=== PATIENT | male | born 1965 | race Caucasian/White ===

== ENCOUNTER 2018-01-28 10:07 | Outpatient (CLI) | payer MEDICAID, SELFPAY ==
[2018-01-28 12:53] LABS: Potassium 4.6 mmol/L (3.5-5.1)
== END 2018-01-28 10:27 ==
PROVIDERS: Visit Provider Family Medicine
DX: I10 Essential (primary) hypertension (principal)
CPT/HCPCS: 36415; 82565; 84132

== ENCOUNTER 2018-06-27 15:51 | Outpatient (CLI) | payer MEDICAID, SELFPAY ==
[2018-06-27 16:05] LABS: HCT 44.7 % (40.0-50.0); Mean Corp. HGB Concentration 35.8 g/dL (32.0-36.0); Mean Corpuscular Hemoglobin 30.2 pg (27.0-33.0); Mean Corpuscular Volume 84.3 fL (80-95); Mean Platelet Volume 8.5 fL (8.0-11.0); Platelet Count 317 x1000/uL (130-400); RBC Distribution Width 12.6 % (11.8-14.1); White Blood Cell Count 8.24 k/cumm (4.4-10.8)
[2018-06-27 17:18] LABS: ALT 38 U/L (12-78); AST 18 U/L (15-37); Albumin 4.3 g/dL (3.4-5.0); Alkaline Phosphatase 51 U/L (46-116); Anion Gap 7.8 mmol/L (3-11); BUN 26 mg/dL (7-18); Bilirubin, Total 0.7 mg/dL (0.2-1.0); CO2 31.2 mmol/L (21.0-32.0); CREATININE 1.29 mg/dL (0.70-1.30); Calcium 9.5 mg/dL (8.5-10.1); Chloride 102 mmol/L (98-107); Cholesterol 191 mg/dL (50-200); Estimated GFR 58.26 (mL/min/1.73m2); Glucose 87 mg/dL (70-100); HDL Cholesterol 50 mg/dL (40-60); LDL CHOLESTEROL 118 mg/dL (<100); Potassium 3.9 mmol/L (3.5-5.1); Sodium 141 mmol/L (136-145); Total Protein 7.3 g/dL (6.4-8.2); Triglyceride 148 mg/dL (30-150)
== END 2018-06-27 16:11 ==
PROVIDERS: Family Medicine; PCP Family Medicine; Visit Provider Emergency Medicine
DX: I10 Essential (primary) hypertension (principal); Z00.00 Encounter for general adult medical examination without abnormal findings; Z01.818 Encounter for other preprocedural examination
CPT/HCPCS: 80053; 80061; 83721; 85027; 84132

== ENCOUNTER 2019-06-07 11:00 | Outpatient (CLI) | payer MEDICAID, SELFPAY ==
--- NOTE | 2019-06-07 09:00 | DI.RAD_ITS ---
EXAM: XR KNEE RT 3V AP,LAT,MARGARITO INDICATION: Pain. COMPARISON: LEFT KNEE 3 VIEW COMPLETE from 12/30/2016 TECHNIQUE: 2D digital imaging was performed. FINDINGS: No acute fracture or dislocation is seen. There is a 2 millimeter linear density anterior to the pa tellar ligament appreciated on both the lateral and the sunrise views. This may represent a foreign body. Please correlate clinically. The soft tissues are otherwise unremarkable.
== END 2019-06-07 11:20 ==
PROVIDERS: PCP Family Medicine; Visit Provider Student in an Organized Health Care Education/Training Program
DX: M25.562 Pain in left knee (principal); R93.7 Abnormal findings on diagnostic imaging of other parts of musculoskeletal system
CPT/HCPCS: 73562

== ENCOUNTER 2019-06-16 04:20 | Outpatient (CLI) | payer MEDICAID, SELFPAY ==
--- NOTE | 2019-06-16 10:30 | DI.MRI_ITS ---
EXAM: MR LOWER JOINT RT WO CLINICAL HISTORY: Right knee internal derangement concern for medial meniscus tear and. TECHNIQUE: Multiplanar multisequence MRI was performed. COMPARISON: XR KNEE RT 3V AP,LAT,MARGARITO from 06/07/2019 FINDINGS: Some soft tissue edema at anterior to the patellar tendon. There is a small artifact in the anterior subcutaneous fat secondary to a tiny fragment of metal visible on plain films. There is thickening a nd edema in the anterior cruciate ligament but no evidence of a full-thickness tear. The medial and l ateral collateral ligaments and extensor mechanism appear intact. Obvious cyst or ganglion is seen po sterior to the posterior cruciate ligament extending through the posterior capsule. It measures a rou ghly 2 by 1 cm by 4 cm. There is a tiny joint effusion. There is mild intracystic substance degenerat stuart signal in the medial meniscus. No meniscal tears or cartilage defects are seen. IMPRESSION: ACL sprain versus mucoid degeneration. Synovial cyst or ganglion seen in the posterior joint space. No evidence of a meniscal tear. DATA REPOSITORY:
== END 2019-06-16 04:40 ==
PROVIDERS: PCP Family Medicine; Visit Provider Student in an Organized Health Care Education/Training Program
DX: M25.561 Pain in right knee (principal); M22.41 Chondromalacia patellae, right knee; M23.91 Unspecified internal derangement of right knee; M79.89 Other specified soft tissue disorders; M25.461 Effusion, right knee
CPT/HCPCS: 73721

== ENCOUNTER 2019-08-23 09:32 | Emergency (ER) | payer MEDICAID, SELFPAY ==
[2019-08-23 09:38] VITALS: BP 146/115; PULSE 84; RESP 18; TEMP 36.6; O2SAT 96
--- NOTE | 2019-08-23 09:53 | ED.GENADUL_ITS ---
Discharge Plan Disposition Patient Disposition: HOME Condition: Fair Discharge Details Chief Complaint: Nk/Back Pain Clinical Impression: Radiculopathy, Back pain, Muscle spasm Primary Care Provider: Ronen Quintero ED Provider: Kayleen Patel Home Meds and New Rx's Prescriptions: New prednisone 10 mg tablet 10 mg PO DAILY Qty: 18 RF: 0 cyclobenzaprine 10 mg tablet 10 mg PO TID PRN (Reason: muscle spasm) Qty: 10 RF: 0 Continued ropinirole 0.5 mg tablet 0.5 mg PO HS Qty: 180 RF: 3 fluticasone propionate 16 GM spray,suspension 1 spray NS BID Qty: 1 RF: 11 hydrochlorothiazide 12.5 mg tablet 12.5 mg PO DAILY Qty: 90 RF: 3 acetaminophen [Tylenol] 325 MG tablet 325 mg PO Q8H PRN PRNRF: 0 ibuprofen 600 MG tablet 600 mg PO Q6H PRN (Reason: Pain) Qty: 15 RF: 0 lisinopril 20 mg tablet 40 mg PO HS RF: 0 amlodipine 5 mg tablet 5 mg PO HS RF: 0 omeprazole 40 mg capsule,delayed release(DR/EC) 40 mg PO DIRECTED RF: 0 Discharge Instructions Instructions: Muscle Spasm (ED), Back Pain (ED) Additional Instructions: Encourage water intake. Encourage gentle stretching as discussed. I am concern regarding the narrowing of your canal of your cervical spine. Referral has been sent to the spine center at [facility]. Your images is also been pushed to them. Please take the steroids as prescribed, please pay attention to be tapered dosing. In regard to your lower back pain, this is most consistent with muscle spasm. You did have degenerative changes noted on your CT scan. Please encourage gentle stretching as we discussed. You may use the Lidoderm patch, these are available [id number]. Tylenol and/or ibuprofen as needed for discomfort. Heat may also be of benefit. You may use the muscle relaxer as prescribed to help with muscle spasm. Please not drive will take this medication. Please avoid heavy lifting. If you develop radiating pain, weakness, change in your bowel or bladder habits, rash, fevers or other new/worsening symptom please seek care urgently once again. Otherwise, please follow-up with your primary care on Wednesday for reevaluation. Referrals: Quintero,Ronen J. 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 He states that 3 days ago he was rogers uling brush from his yard when he felt a sudden pop in his lumbar spine. He states he did not have any pain initially. He was not to the following evening that he began experiencing discomfort in the lower back. States that since that time, the pain has been progressively worsening to the point that this morning he was having difficulty getting out of bed and performing simple activities secondary to severe pain. States the pain is in the lumbar spine worse on the right side than the left foot also severe midline tenderness with movement of his lower extremities. He denies any change in bowel or bladder habits. Denies any sensory deficits. Has not noted any weakness. Since that time, patient is also been endorsing tingling in the left arm and hand with extension of the neck. He denies any pain with this movement. He denies any pain in the neck itself. He is forward to motion of the neck. No history of previous neck or back trauma. No previous consistent pain in his neck or his back. On exam, patient appears very uncomfortable. He is moving in a very stiff manner. He has not had anything for his discomfort as of yet. He appears nontoxic. Exam of the neck shows no tenderness with range of motion or percussion/palpation over the cervical spine. He has no pain or typical response with Spurling's test. However, when patient extends directly backward he has tingling in the left hand. On further exam, sharp/dull testing is intact and patient in neutral position. However, he is unable to differentiate along the C5 nerve root distribution when he extends his head backwards. He does not have pain with doing this but rather this altered sensation. 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 He has no saddle paresthesias. 5-5 strength in the bilateral lower extremities. Normal Babinski. Straight leg is positive bilaterally. Is exquisitely tender along the length of his lumbar spine, particularly on the right side although he does express midline tenderness. No step-off is palpable. No rash. He does have palpable spasm along this right side. No pain over the SI joints, normal pelvic exam. Consulted with radiologist regarding imaging. The patient is having a focal neurologic deficit of the cervical spine, will obtain MRI of the patient's cervical spine and a CT scan of his lumbar spine. Patient was given oral Valium, Tylenol, ibuprofen to help with discomfort. Will place Lidoderm patch after his imaging is completed. CT reviewed by radiologist: FINDINGS: Bones: The last intervertebral disc space is designated the L5/S1 level for the numbering purpose of this examination. The vertebral body heights are well maintained. Alignment is satisfactory. No fracture is seen. There are small endplate osteophytes. There are mild facet degenerative changes. There is mild spurring at the SI joints. T12-L1: No disc herniations or bulges are present. L1-2: No disc herniations or bulges are present. L2-3: No disc herniations or bulges are present. L3-4 and L4-5: There is mild broad-based disc bulging. There is mild bilateral neural foraminal narrowing. L5-S1: No disc herniations or bulges are present. Soft Tissues: There is a left renal cyst. The aorta is normal in diameter.. The paraspinal soft tissues are unremarkable. IMPRESSION: Mild degenerative disc changes and facet degenerative changes at L3-4 and L4-5. No focal disc herniation or other acute abnormality is seen.. FINDINGS: BONES: Vertebral body heights are maintained. Alignment is normal. Bone marrow signal intensity is within normal limits. CERVICAL CORD: Craniovertebral junction is unremarkable. The cervical cord is normal size and signal intensity. SOFT TISSUES: Unremarkable. C2-3: No disc herniation or bulge is identified. C3-4: The osteophytes project toward the right, causing severe neural foraminal narrowing. There is mild effacement of the anterior CSF space. Facet degenerative changes are present. C4-5: Small broad-based disc osteophytes. Mild bilateral neural foraminal narrowing. Facet degenerative changes are seen. C5-6: Broad-based disc osteophytes. Question of a small left foraminal disc herniation. Facet degenerative changes are seen. C6-7: Moderate to severe loss of disc height and broad-based disc osteophytes causing severe bilateral neural foraminal narrowing. There is effacement of the anterior CSF space. Facet degenerative changes are seen. C7-T1: No disc herniation or bulge is identified. IMPRESSION: Multilevel degenerative disc changes and facet degenerative changes. There is severe neural foraminal narrowing on the right at C3-4. There is severe bilateral neural foraminal narrowing at C6-7. There is a question of a small left foraminal disc herniation at C5-6 versus disc osteophyte. Mild narrowing of the central canal is also present.. Discussed these findings with the patient. He is feeling much more comfortable with the above interventions. I consulted with Dr. Terry who advised follow- up with spine surgery at [facility]. He did not feel this may be an emergent transfer as this is solely positional radiculopathy with no evidence of muscular involvement or constant symptoms. He agreed with plan for oral steroid taper to help with inflammation and discomfort. Discussed these recommendations at length with the patient. He was given strict return precautions. Encourage gentle range of motion of the lumbar spine, exercises were demonstrated for the patient. I did encourage light use of topical patches, heat. Will prescribe prednisone, first dose given here. Also prescribe Flexeril to help with muscle relaxation. He reports that he primarily wants to use this at night some having Flexeril's sedation side effect will help him sleep better. He knows not to drive will take this medication. Images were pushed down to [facility]. Report sent home with the patient. I have asked him to follow-up with his primary care the end of the week as he is unlikely to be able to follow-up with a spine center in the very near free future. All his questions and concerns were addressed and is in agreement this plan. HPI General Mode of arrival: ambulatory . Date/Time Provider Initiated Documentation: 08/23/19 09:52 . Limitations to Documentation: no limitations . Information obtained by: patient and RN notes reviewed . History of Present Illness 53 year old M presents to the emergency department with the chief complaint of Low back pain and left arm sensation changes, described as severe, with intensity rated at 9. Quality is described as sharp, and is localized to the back. Patient reports no radiation (Pain is nonradiating, tingling does radiate down the left arm with extension of the neck). Patient started experiencing this day(s) and it has been constant. Immobilization improves symptom(s), Movement worsens symptoms . Patient notes denies cough, fever/chills, headaches, loss of appetite, nausea/vomiting, rash, shortness of breath and weakness. Patient did receive the following treatments prior to arrival, none Related Data Home Medications Medication Instructions Recorded Confirmed acetaminophen [Tylenol] 325 mg PO Q8H PRN PRN 06/02/16 08/23/19 ibuprofen 600 mg PO Q6H PRN #15 tab 03/25/17 08/23/19 fluticasone propionate 1 spray NS BID #1 bottle 05/04/17 08/23/19 hydrochlorothiazide 12.5 mg tablet 12.5 mg PO DAILY #90 tab-cap 03/06/19 08/23/19 ropinirole 0.5 mg tablet 0.5 mg PO HS #180 tab 05/19/19 08/23/19 amlodipine 5 mg PO HS 08/23/19 08/23/19 cyclobenzaprine 10 mg PO TID PRN #10 tab 08/23/19 lisinopril 40 mg PO HS 08/23/19 08/23/19 omeprazole 40 mg PO DIRECTED 08/23/19 08/23/19 prednisone 10 mg PO DAILY #18 tab 08/23/19 Previous Rx's Medication Instructions Recorded ibuprofen 600 mg PO Q6H PRN #15 tab 03/25/17 fluticasone propionate 1 spray NS BID #1 bottle 05/04/17 hydrochlorothiazide 12.5 mg tablet 12.5 mg PO DAILY #90 tab-cap 03/06/19 ropinirole 0.5 mg tablet 0.5 mg PO HS #180 tab 05/19/19 cyclobenzaprine 10 mg PO TID PRN #10 tab 08/23/19 prednisone 10 mg PO DAILY #18 tab 08/23/19 Allergies Allergy/AdvReac Type Severity Reaction Status Date / Time diphenhydramine AdvReac Intermediate HEARTBURN Verified 08/23/19 09:46 zinc [Zinc] AdvReac Intermediate HEARTBURN Verified 08/23/19 09:46 morphine AdvReac vomiting Verified 08/23/19 09:46 General Stated Complaint: Nk/Back Pain JUAN: 3 Review of Systems Constitutional Constitutional: Reports as per HPI, Denies chills, Denies fatigue, Denies fever(s), Denies frequent falls and Denies headache(s) Eyes Eyes: Denies change in vision ENT Ears, Nose, Mouth, and Throat: Denies headache(s) Cardiovascular Cardiovascular: Denies chest pain, Denies dyspnea and Denies dyspnea on exertion Respiratory Respiratory: Denies cough, Denies dyspnea and Denies dyspnea on exertion Gastrointestinal Gastrointestinal: Denies abdominal pain, Denies change in bowel habits and Denies fecal incontinence Genitourinary Genitourinary: Reports as per HPI, Denies urinary hesitancy and Denies urinary incontinence Musculoskeletal Musculoskeletal: Reports as per HPI, Reports back pain, Denies muscle weakness, Denies numbness, Denies radiating pain into limb, Reports stiffness and Reports tingling Integumentary/Breasts Skin/Breast: Reports as per HPI and Denies rash Neurologic Neurologic: Reports as per HPI, Denies frequent falls, Denies headache(s), Denies localized weakness, Denies numbness, Denies radicular pain, Denies sensory deficit, Reports tingling and Denies paresthesias Endocrine Endocrine: Denies fatigue [facility] Medical History Chondromalacia patellae, right knee (Inactive ~03/2019) Surgical History Appendectomy Cholecystectomy Vasectomy Social History Smoking/Tobacco Use Status: Current every day Tobacco Type: smokeless tobacco Alcohol Intake: former Drug use: Rarely Substance use type: marijuana Current gender identity: male Do you feel safe at home: Yes Do you feel safe in your relationship?: Yes Exam Const General: cooperative, healthy appearing, uncomfortable, no acute distress, well developed and well groomed Nutritional Appearance: well nourished and overweight Orientation: alert, awake and oriented x3 Eyes General: appearance normal, both eyes and all related structures Neck Neck: normal visual inspection, full ROM, no lymphadenopathy, no meningeal signs and other (negative spurlings but patient has sensation changes with extension of neck) Resp Effort & Inspection: normal respiratory effort and able to speak in complete sentences Auscultation: clear to auscultation bilaterally, no rales, no rhonchi and no wheezes Cardio Rate: regular rate Rhythm: regular rhythm Heart Sounds: S1 normal and S2 normal GI Inspection: normal to inspection Palpation: soft and nontender Back/Spine/Pelvis Back: no CVA tenderness Cervical Spine: normal cervical lordosis, cervical ROM normal, No Lhermitte's sign positive, No loss of normal cervical lordosis, No cervical muscular tenderness, No pain with cervical ROM, No cervical spasm, No cervical spinal tenderness, No step off deformity, No cervical ROM abnormal and other (sensation deficit with extension along C5 distribution, normal w/neck neutr) Thoracic/Lumbar Spine: thoracic and lumbar spine normal to inspection, No thoraco-lumbar ROM normal (rotation full to left, limited 2* pain on right, forward flex and extension), No kyphosis, No mass, paraspinal tenderness (right lumbar spine), thoraco-lumbar ROM limited, thoraco-lumbar spasm (palpable spasm right lumbar spine), No thoracic spinal tenderness, lumbar spinal tenderness and straight leg raise positive (bilaterally) Pelvis: no pain with anterior-posterior compression, no pain with lateral compression and no buttock ecchymosis Sacroiliac joints: bilaterally nontender Sacrum: no ecchymosis, no erythema and no swelling Skin General skin exam: no rashes or lesions noted Neuro General: patient alert and patient awake Cognition: normal cognition Speech: speech normal Gait: normal gait Motor: muscle tone normal throughout, strength 5/5 throughout, no movement abnormalities noted and no fasciculations Sensory Exam: lower extremity (normal sensation, strength testing), perineum exam normal and upper extremity (left has normal with next in extension, sharp/dull limited with extensionC5) DTR's: Rt Biceps: 2+, Lt Biceps: 2+, Rt Brachioradialis: 2+, Lt Brachioradialis: 2+, Rt Patellar: 2+, Lt Patellar: 2+, Rt Ankle: 2+ and Lt Ankle: 2+ Plantar Reflexes: Equivocal: bilateral Extrem General: normal to inspection, full ROM, capillary refill normal, no joint enlargement, no pedal edema, no calf tenderness and normal gait Psych Appearance: grossly normal and well kempt Mental Status: mental status grossly normal Speech and Movement: speech and movement normal Course Vital Signs Vital signs: Vital Signs Temperature 36.6 C 08/23/19 09:38 Pulse 84 08/23/19 09:38 Respiratory Rate 18 08/23/19 09:38 Blood Pressure 146/115 H 08/23/19 09:38 Pulse Oximetry 96 08/23/19 09:38 Temperature 36.6 C 08/23/19 09:38 Temperature Source Skin 08/23/19 09:38 Pulse 84 08/23/19 09:38 Respiratory Rate 18 08/23/19 09:38 Respiratory Effort 08/23/19 09:45 Blood Pressure 146/115 H 08/23/19 09:38 Blood Pressure Position Sitting 08/23/19 09:38 Pulse Oximetry 96 08/23/19 09:38 Oxygen Delivery Method Room Air 08/23/19 09:38 Oxygen Flow Rate 0 08/23/19 09:38 Pain Level 9 08/23/19 09:38 Comment trying heat and icy-hot pads 08/23/19 09:38
[2019-08-23] MEDS: diazePAM 5 MG TAB PO (10:12)
[2019-08-23] MEDS: Ibuprofen 600 MG TAB PO (10:12)
[2019-08-23] MEDS: Acetaminophen 500 MG TAB 1000 MG PO (10:13)
--- NOTE | 2019-08-23 10:15 | DI.MRI_ITS ---
EXAM: MR CERVICAL SPINE WO CLINICAL HISTORY: altered sensation with extension of the neck TECHNIQUE: Multiplanar multisequence MRI of the cervical spine was performed without intravenous con trast. The exam is somewhat limited by patient motion. COMPARISON: No exams were available for comparison FINDINGS: BONES: Vertebral body heights are maintained. Alignment is normal. Bone marrow signal intensity is w ithin normal limits. CERVICAL CORD: Craniovertebral junction is unremarkable. The cervical cord is normal size and signal intensity. SOFT TISSUES: Unremarkable. C2-3: No disc herniation or bulge is identified. C3-4: The osteophytes project toward the right, causing severe neural foraminal narrowing. There is mild effacement of the anterior CSF space. Facet degenerative changes are present. C4-5: Small broad-based disc osteophytes. Mild bilateral neural foraminal narrowing. Facet degenera tive changes are seen. C5-6: Broad-based disc osteophytes. Question of a small left foraminal disc herniation. Facet degen erative changes are seen. C6-7: Moderate to severe loss of disc height and broad-based disc osteophytes causing severe bilatera l neural foraminal narrowing. There is effacement of the anterior CSF space. Facet degenerative diane nges are seen. C7-T1: No disc herniation or bulge is identified. IMPRESSION: Multilevel degenerative disc changes and facet degenerative changes. There is severe neural foramina l narrowing on the right at C3-4. There is severe bilateral neural foraminal narrowing at C6-7. The re is a question of a small left foraminal disc herniation at C5-6 versus disc osteophyte. Mild narr owing of the central canal is also present.. DATA REPOSITORY:
--- NOTE | 2019-08-23 11:09 | DI.CT_ITS ---
EXAM: CT LUMBAR SPINE WO CLINICAL HISTORY: felt pop with severe pain. TECHNIQUE: Imaging Protocol: Axial computed tomography images with coronal and sagittal reformatted images were created and reviewed CONTRAST MATERIAL: Noncontrast COMPARISON: No exams were available for comparison FINDINGS: Bones: The last intervertebral disc space is designated the L5/S1 level for the numbering purpose of this examination. The vertebral body heights are well maintained. Alignment is satisfactory. No frac ture is seen. There are small endplate osteophytes. There are mild facet degenerative changes. Ther e is mild spurring at the SI joints. T12-L1: No disc herniations or bulges are present. L1-2: No disc herniations or bulges are present. L2-3: No disc herniations or bulges are present. L3-4 and L4-5: There is mild broad-based disc bulging. There is mild bilateral neural foraminal narr owing. L5-S1: No disc herniations or bulges are present. Soft Tissues: There is a left renal cyst. The aorta is normal in diameter.. The paraspinal soft tis sues are unremarkable. IMPRESSION: Mild degenerative disc changes and facet degenerative changes at L3-4 and L4-5. No focal disc hernia tion or other acute abnormality is seen.. RADIATION DOSE DELIVERED: Total DLP DATA REPOSITORY: All CT scans at this facility are submitted to the National Radiology Data Registry (NRDR) Dose Index Registry (DIR) with the [employer] (A[employer]). RADIATION OPTIMIZATION: All CT scans at this facility use at least one of these dose optimization te chniques: automated exposure control; mA and/or kV adjustment per patient size (includes targeted exa ms where dose is matched to clinical indication); or iterative reconstruction.
[2019-08-23] MEDS: Lidocaine 5% Patch 1 PATCH TP (12:00)
[2019-08-23 12:11] VITALS: BP 124/84; PULSE 56; RESP 16; TEMP 36.9; O2SAT 97
[2019-08-23 13:32] VITALS: BP 137/99; PULSE 70; RESP 14; TEMP 36.7; O2SAT 95
[2019-08-23] MEDS: predniSONE 20 MG TAB 60 MG PO (13:38)
--- NOTE | 2019-08-24 14:04 | CMPROGNOTE_ITS ---
- If Service Date Differs Date of service: 08/24/19 Time of Service: 14:04 Care Management Progress Note At ED provider's request, CM coordinates referral to [facility].
--- NOTE | 2019-08-24 14:04 | PDOC.ERCMPRO ---
- If Service Date Differs Date of service: 08/24/19 Time of Service: 14:04 Care Management Progress Note At ED provider's request, CM coordinates referral [place] [facility] [place] [facility].
== END 2019-08-23 13:55 | disposition home or self-care (01) ==
PROVIDERS: Emergency Provider Physician Assistant; PCP Family Medicine
DX: M54.12 Radiculopathy, cervical region (principal); M62.830 Muscle spasm of back; X50.0XXA Overexertion from strenuous movement or load, initial encounter
CPT/HCPCS: 99284; 72131; 72141; 99285; J7512

== ENCOUNTER 2019-08-24 17:00 | Emergency (ER) | payer MEDICAID, SELFPAY ==
[2019-08-24] VITALS (25 sets, daily range): BP systolic 132–171; BP diastolic 77–116; PULSE 69–106; RESP 12–26; TEMP 35.8–36.9; O2SAT 94–98
[2019-08-24] MEDS: EPINEPHrine 1 MG/ML AMP pres-free (17:25)
[2019-08-24] MEDS: Normal Saline 1,000 ML 1000 ML IV (17:30)
[2019-08-24] MEDS: Famotidine 20 MG/2 ML VIAL (17:35)
[2019-08-24] MEDS: Normal Saline 50 ML 200 ML (17:38)
[2019-08-24] MEDS: Normal Saline Flush 10 ML SYR IVP (17:51)
--- NOTE | 2019-08-24 19:12 | W.ED.GENAD ---
Discharge Plan Disposition Patient Disposition: HOME Condition: Stable Discharge Details Chief Complaint: Allergic Clinical Impression: Uvulitis Primary Care Provider: Ronen Quintero ED Provider: Franchesca Morris Home Meds and New Rx's Prescriptions: New cephalexin [Keflex] 500 mg capsule 500 mg PO BID Qty: 20 RF: 0 Discontinued lisinopril 20 mg tablet 40 mg PO HS RF: 0 prednisone 10 mg tablet 10 mg PO DAILY Qty: 18 RF: 0 No Action ropinirole 0.5 mg tablet 0.5 mg PO HS Qty: 180 RF: 3 fluticasone propionate 16 GM spray,suspension 1 spray NS BID Qty: 1 RF: 11 hydrochlorothiazide 12.5 mg tablet 12.5 mg PO DAILY Qty: 90 RF: 3 acetaminophen [Tylenol] 325 MG tablet 325 mg PO Q8H PRN PRNRF: 0 ibuprofen 600 MG tablet 600 mg PO Q6H PRN (Reason: Pain) Qty: 15 RF: 0 amlodipine 5 mg tablet 5 mg PO HS RF: 0 omeprazole 40 mg capsule,delayed release(DR/EC) 40 mg PO DIRECTED RF: 0 cyclobenzaprine 10 mg tablet 10 mg PO TID PRN (Reason: muscle spasm) Qty: 10 RF: 0 Discharge Instructions Instructions: Uvulitis (ED) Additional Instructions: You declined CT today as well as admission to the hospital. You understand the risks of being discharged home. Ice water or ice cream as discussed. Discontinue prednisone. Discontinue lisinopril. Use antibiotic as prescribed Use EpiPen if needed as discussed in the outer aspect of your thigh. Recheck with your PCP tomorrow as scheduled. Please follow-up with ENT for reevaluation. Return to the emergency room for any worsening, concerns or alarming symptoms immediately if needed. Please call 911 for acute swelling of your throat, or any worsening symptoms as discussed Referrals: Alvin Craig DO [OSTEOPATHIC DOCTOR] - Siddhartha Montgomery MD [ [facility] STAFF PHYSICIAN] - Discharge Data Discharge Date/Time-TO BE ENTERED AT DEPARTURE: 08/24/19 20:05 Medical Decision Making <MALACHI Gambino - Last Filed: 08/24/19 21:51> This is a 53-year-old patient presenting for complaints of onset of tightness in his throat preceded by a tingling which he reports began at approximately noon. 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 Patient denies any obvious exposure or changes in food today. Patient does report he began a prescription last night and redosed this morning prednisone as well as Flexeril for back pain for which she was seen in the emergency department last evening. Patient does report his back pain is improving. Patient does report he has taken Flexeril in the past without difficulty. Prednisone is a new prescription. Patient denies any obvious rash. Any other sites of swelling. Any headaches or dizziness. Patient denies obvious difficulty breathing. Patient reports in the last 4 hours since onset of his symptoms he describes a progressive insidious throat tightness. Patient does report mild hoarseness of his voice which seems to be developing. Patient denies drooling. Is able to manage his secretions. Has been able to eat and drink without difficulty. Denies any nausea, vomiting or abdominal pain. Denies any obvious cutaneous involvement. Initial evaluation of the patient reveals a comfortable patient, speaking in full sentences with no increase in respiratory effort. On exam patient does have uvula edema and bogginess with mild erythema associated. Mild posterior pharynx erythema also noted. No obvious exudates present. Patient does appear somewhat anxious at this time as he does report being nervous needing to be evaluated in the emergency room during Covid pandemic. Patient's initial blood pressure noted to be 171/116, heart rate 106 easy respirations and O2 saturation 96%. Patient afebrile. Patient denies any obvious infectious symptoms. Patient does report a Benadryl allergy, specifically described as nausea and vomiting. Patient has taken no other medications today. We will plan to provide epinephrine IM the EpiPen and obtain IV access for Pepcid IV. Patient has tolerated Pepcid in the past. We will plan to provide 1 L of IV fluid. Will plan to observe in the emergency room. After approximately 1 hour patient reports approximately 50% improvement in his symptoms however patient reports a persistent sensation of tightness however throat discomfort is improved. Patient reports he is aware of sensation of tightness. Patient denies any development of new symptoms. Specifically denies any cutaneous involvement, abdominal discomfort nausea or vomiting. Denies difficulty breathing, headaches or dizziness. Patient's vital signs have significantly improved. Given patient's persistence of symptoms we will plan to continue to monitor in the ER and reevaluate. Reevaluation at 2 hours, no significant improvement noted after his initial reports of approximately 50% improvement in his symptoms. Patient continues to appear well and speaking full sentences. Breath sounds remain clear. Given patient's improvement with epinephrine allergic reaction does remain in the differential however patient is also noted to be on lisinopril angioedema is a possible etiology of patient's symptoms. Patient's symptoms did begin approximately 7 hours prior to this time and as his symptoms are improving will recommend holding lisinopril. Patient agrees with this plan of care. Patient reportedly does frequently use chewing tobacco. Oral or pharyngeal cancer including differential. Dr. Fontana who did also evaluate this patient did offer patient a CT scan which he declines. I did rediscuss this with the patient he continues to decline need for CT scan today. Consideration for possible infectious etiology of patient's symptoms and focal uvulitis however patient lacks fever. Had a fairly abrupt onset of symptoms preceded by tingling and has had some improvement with epinephrine however infection remains in differential due to persistence of symptoms. We did discuss discharge planning at length with this patient. I did offer this patient admission to the hospital given his persistence of symptoms and lack of full resolution. I did make patient very aware of my concern of airway obstruction or worsening symptoms. Patient does live approximately 20 to 30 minutes away. Patient does desire discharge home at this time. Is aware of the risk of decompensation. Patient does continue to prefer discharge home. Will provide patient an EpiPen if he does develop any worsening of his symptoms. Given patient's potential reaction to prednisone today will hold on any additional prednisone. Will hold on Benadryl given his history of allergy. Did recommend continuation of Pepcid at home. Recommended discontinuation of lisinopril. Recommended ENT follow-up for possible upper endoscopy and scope. Patient agrees with this plan of care. Patient put on elderly caregiver list for follow-up. Patient does have a scheduled follow-up appointment with his PCP for tomorrow, he does plan to follow-up with this. Again we did discuss at length return precautions, use of 911 and EpiPen if needed. Patient reports his understanding and agrees with plan of care. Patient is aware of the risk of discharge at this time and possible decompensation. The patient was stable and requested discharge. Prior to discharge, my usual and customary return precautions were reviewed with the patient - this included follow-up instructions and reasons to return to the Emergency Department if conditions worsens, does not improve as expected, or other new concerns arise. <Michael Fontana MD - Last Filed: 08/26/19 12:00> 19:24 -- Patient seen, examined, discussed with MALACHI Mcclure. Briefly Mr. Matthew is a 53-year-old male who was seen here in the emergency department for back pain yesterday. He was treated with prednisone and Flexeril. Today he developed sensation of throat tightening. He denied associated rash, shortness of breath, nausea, or rash. Initial concern from MALACHI Mcclure including potential allergic reaction. Patient does have known allergy to Benadryl of vomiting. He is concerned that allergy may be related to prednisone as he has tolerated Flexeril in the past. With concern for airway swelling, patient was administered epinephrine intramuscularly. On my evaluation, airway is intact, he has no rash, lungs are clear to auscultation bilaterally with no respiratory distress. Patient is not tachycardic. Voice is clear. He has no stridor. There is no peritonsillar swelling but he does have mild erythema and swelling of his uvula. Consider inflammation secondary to chronic smokeless tobacco use versus infectious etiology. Consider also angioedema given DERRICK inhibitor use although I think this is less likely with isolated swelling. Consider less likely allergic reaction. Patient did note that symptoms improved with epinephrine. I discussed with patient recommendation for advanced imaging including CT of the neck to assess for mass given smokeless tobacco chewing history. Patient provided informed refusal of diagnostic imaging. He is agreeable to following up with early childhood. We discussed with the patient recommendation for hospitalization for observation giving persistent symptoms and unclear etiology at this point. He provided informed refusal to MALACHI Morris. Plan will be to hold lisinopril, stop prednisone, start keflex, provide epipen, follow-up with PCP tomorrow and ENT martin if sysmptoms persist. HPI <MALACHI Gambino - Last Filed: 08/24/19 21:51> General Date/Time Provider Initiated Documentation: 08/24/19 17:08. HPI Narrative: This is a 53-year-old patient presenting to the emergency room for 4 hours of sensation of tightness in his throat, patient also reports increasing hoarseness for the last 4 hours. Patient denies obvious difficulty breathing or shortness of breath or wheezing. Patient denies nausea or vomiting. Patient denies headache or dizziness. Patient reports he was seen in the emergency room yesterday for complaints of back pain. Patient was prescribed a course of prednisone as well as Flexeril. Patient reports he has taken Flexeril in the past without difficulty. Patient reports he took both Flexeril and prednisone this morning at approximately 7 AM. 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 Denies any new food your new obvious exposures. Denies history of seasonal allergies. Patient reports at approximately noon he began to have sensation of tightness in his throat which continues to slowly progress. Patient is speaking in full sentences. Is in no obvious distress at this time but does report increase in hoarseness in his throat. Denies any fevers or chills. Denies any ill feeling. No rashes. No other concerns or complaints at this time. Patient does report he has a history of Benadryl allergy which he describes as stomach upset. Related Data Home Medications Medication Instructions Recorded Confirmed acetaminophen [Tylenol] 325 mg PO Q8H PRN PRN 06/02/16 08/25/19 ibuprofen 600 mg PO Q6H PRN #15 tab 03/25/17 08/25/19 fluticasone propionate 1 spray NS BID #1 bottle 05/04/17 08/25/19 hydrochlorothiazide 12.5 mg tablet 12.5 mg PO DAILY #90 tab-cap 03/06/19 08/25/19 ropinirole 0.5 mg tablet 0.5 mg PO HS #180 tab 05/19/19 08/25/19 amlodipine 5 mg PO HS 08/23/19 08/25/19 cyclobenzaprine 10 mg PO TID PRN #10 tab 08/23/19 08/25/19 omeprazole 40 mg PO DIRECTED 08/23/19 08/25/19 cephalexin [Keflex] 500 mg PO BID #20 cap 08/24/19 08/25/19 Previous Rx's Medication Instructions Recorded ibuprofen 600 mg PO Q6H PRN #15 tab 03/25/17 fluticasone propionate 1 spray NS BID #1 bottle 05/04/17 hydrochlorothiazide 12.5 mg tablet 12.5 mg PO DAILY #90 tab-cap 03/06/19 ropinirole 0.5 mg tablet 0.5 mg PO HS #180 tab 05/19/19 cyclobenzaprine 10 mg PO TID PRN #10 tab 08/23/19 cephalexin [Keflex] 500 mg PO BID #20 cap 08/24/19 Allergies Allergy/AdvReac Type Severity Reaction Status Date / Time diphenhydramine AdvReac Intermediate HEARTBURN Verified 08/25/19 11:50 zinc [Zinc] AdvReac Intermediate HEARTBURN Verified 08/25/19 11:50 morphine AdvReac vomiting Verified 08/25/19 11:50 General Stated Complaint: Allergic JUAN: 3 Review of Systems <MALACHI Gambino - Last Filed: 08/24/19 21:51> All systems reviewed & are unremarkable except as noted in HPI and below Constitutional Constitutional: Denies chills, Denies fatigue, Denies fever(s), Denies headache(s) and Denies malaise Eyes Eyes: Denies itchy eyes ENT Ears, Nose, Mouth, and Throat: Reports change in voice (Hoarseness), Denies dysphagia, Denies dizziness, Denies dry mouth, Denies headache(s), Denies lip swelling, Denies mouth pain, Denies nasal discharge, Denies nasal obstruction, Denies nasal trauma, Denies neck pain, Denies post nasal drip, Denies sore throat, Reports throat swelling and Denies tongue swelling Cardiovascular Cardiovascular: Denies chest pain, Denies syncope, Denies rapid heart rate, Denies palpitations and Denies dyspnea Respiratory Respiratory: Denies cough, Denies dyspnea and Denies wheezing Gastrointestinal Gastrointestinal: Denies abdominal pain, Denies cramping, Denies dysphagia, Denies heartburn, Denies nausea and Denies vomiting Musculoskeletal Musculoskeletal: Denies neck pain Neurologic Neurologic: Denies dizziness, Denies syncope and Denies headache(s) Endocrine Endocrine: Denies fatigue and Denies palpitations Allergic/Immunologic Allergic/Immunologic: Denies urticaria, Denies itchy eyes, Denies lip swelling, Denies seasonal rhinorrhea, Reports throat swelling, Denies tongue swelling and Denies wheezing PFSH <MALACHI Gambino - Last Filed: 08/24/19 21:51> Medical History Chondromalacia patellae, right knee (Inactive ~03/2019) Social History Smoking/Tobacco Use Status: Current every day Tobacco Type: smokeless tobacco Alcohol Intake: former Drug use: Rarely Substance use type: marijuana Current gender identity: male Do you feel safe at home: Yes Do you feel safe in your relationship?: Yes Exam <MALACHI Gambino - Last Filed: 08/24/19 21:51> Narrative Exam Narrative: CONST: Healthy appearing patient, in no acute distress. Well hydrated. Alert and oriented. HENMT: Head nomocephalic, normal to inspection. Atraumatic. Hearing grossly normal. External ear canal no erythema or swelling. TM normal bilaterally. Nose normal to inspection. No rhinnorhea. Normal facial exam. Oral mucosa normal. Tounge normal. Dentition normal. Minimal erythema of the posterior oropharynx. Uvula with mild erythema, diffuse swelling and bogginess present. EYES: General normal appearance. Alignment normal. Eyelids normal. Conjunctiva normal. NECK: Normal visual inspection. FROM. No lymphadenopathy. Trachea midline. No Midline tenderness. CHEST: Normal insepection of the chest. RESP: Normal respiratory effort. Speaking full sentences. No cough. No wheezing. No retractions. Clear to auscaltation. Breath sound equal and present bilaterally. CARDIO: No JVD. Normal PMI. Regular Rate. Regular Rhythm. Normal peripheral pulses. GI: Normal inspection of abdomen. No distension. Soft. Nontender. Bowel sounds present in all 4 quadrants. No rebound. No gaurding. MUSCULOSKELETAL: Normal Gait. FROM of all extremities. Distal neurovascularly intact. Sensation intact distally. SKIN: Normal. Dry. No rashes. No hives NEURO: Alert and awake. Speech clear. PSYCH: Normal affect. Cooperative. Course <MALACHI Gambino - Last Filed: 08/24/19 21:51> Vital Signs Vital signs: Vital Signs Temperature 36.9 C 08/24/19 17:03 Pulse 106 H 08/24/19 17:03 Respiratory Rate 16 08/24/19 17:03 Blood Pressure 171/116 H 08/24/19 17:03 Pulse Oximetry 96 08/24/19 17:03 Temperature 36.9 C 08/24/19 17:03 Temperature Source Skin 08/24/19 17:03 Pulse 79 08/24/19 18:45 Pulse 88 08/24/19 18:50 Respiratory Rate 23 08/24/19 18:50 Respiratory Effort 08/24/19 17:12 Respiratory Pattern Normal 08/24/19 17:12 Blood Pressure 141/83 H 08/24/19 18:45 Blood Pressure Mean 96 08/24/19 18:45 Blood Pressure Position Sitting 08/24/19 17:03 Pulse Oximetry 97 08/24/19 18:50 Oxygen Delivery Method Room Air 08/24/19 17:47 Oxygen Flow Rate 0 08/24/19 17:47 Pain Level 2 08/24/19 17:03
--- NOTE | 2019-08-24 19:21 | NUR.NOTE ---
Nursing Note:faxed referal to ent for 1 week appt 08/24/19
[2019-08-24] MEDS: Cephalexin 500 MG CAP PO (19:50)
[2019-08-24] MEDS: EPINEPHrine 0.3 MG KIT IM (19:51)
== END 2019-08-24 20:05 | disposition home or self-care (01) ==
PROVIDERS: Emergency Provider Physician Assistant; PCP Family Medicine
DX: K12.2 Cellulitis and abscess of mouth (principal); R49.0 Dysphonia; F17.220 Nicotine dependence, chewing tobacco, uncomplicated
CPT/HCPCS: 96361; 96372; 96374; 96375; 99284; J0171

== ENCOUNTER 2020-09-25 20:08 | Emergency (ER) | payer MEDICAID, SELFPAY ==
[2020-09-25 20:12] VITALS: BP 130/88; PULSE 97; RESP 16; TEMP 36.6; O2SAT 98
--- NOTE | 2020-09-25 20:21 | W.ED.GENAD ---
Discharge Plan Disposition Patient Disposition: HOME Condition: Stable Discharge Details Clinical Impression: Tick bite Primary Care Provider: Ronen Quintero ED Provider: Danny Wade Home Meds and New Rx's Prescriptions: Continued ropinirole 0.5 mg tablet 0.5 mg PO HS Qty: 180 RF: 3 fluticasone propionate 50 mcg/actuation spray,suspension 1 spray NS BID Qty: 1 RF: 11 hydrochlorothiazide 12.5 mg tablet 12.5 mg PO DAILY Qty: 90 RF: 3 lisinopril 20 mg tablet 40 mg PO DAILY Qty: 90 RF: 3 acetaminophen [Tylenol] 325 MG tablet 325 mg PO Q8H PRN PRNRF: 0 ibuprofen 600 MG tablet 600 mg PO Q6H PRN (Reason: Pain) Qty: 15 RF: 0 omeprazole 40 mg capsule,delayed release(DR/EC) 40 mg PO DIRECTED RF: 0 Discharge Instructions Instructions: Tick Bite (ED) Additional Instructions: Tick removed without difficulty. Tetanus status updated. Single dose of doxycycline was given. Please watch for new or worsening symptoms and return to the ER for any concerns. Medical Decision Making Patient presents for tick bite. Tick was easily removed using the tick nguyen. Appears to be a deer tick. Will update tetanus, give a single dose of doxycycline. The area was thoroughly cleaned. Patient is comfortable with plan and has additional questions or concerns. Medical Records Medical records reviewed: Yes I reviewed the patient's medical records. HPI General Mode of arrival: ambulatory. Date/Time Provider Initiated Documentation: 09/25/20 20:09. Limitations to Documentation: no limitations. Information obtained by: patient. HPI Narrative: 54-year-old gentleman, past medical history of hypertension, GERD, presenting to the ER because of a tick bite. Patient reports that he was outside working yesterday, dog sleep in his bedroom, unsure of the exact timeline. He noticed the tick to his left lower back about an hour ago, and could not get it off himself. He reports minimal localized discomfort but denies fever, redness, rash, drainage, joint pain, any other symptoms whatsoever. Related Data Home Medications Medication Instructions Recorded Confirmed acetaminophen [Tylenol] 325 mg PO Q8H PRN PRN 06/02/16 05/14/20 ibuprofen 600 mg PO Q6H PRN #15 tab 03/25/17 05/14/20 ropinirole 0.5 mg tablet 0.5 mg PO HS #180 tab 05/19/19 08/25/19 omeprazole 40 mg PO DIRECTED 08/23/19 05/14/20 hydrochlorothiazide 12.5 mg tablet 12.5 mg PO DAILY #90 tab-cap 04/16/20 05/14/20 fluticasone propionate 50 1 spray NS BID #1 bottle 05/14/20 05/14/20 mcg/actuation nasal spray,suspension lisinopril 20 mg tablet 40 mg PO DAILY #90 tab 09/06/20 Previous Rx's Medication Instructions Recorded ibuprofen 600 mg PO Q6H PRN #15 tab 03/25/17 ropinirole 0.5 mg tablet 0.5 mg PO HS #180 tab 05/19/19 hydrochlorothiazide 12.5 mg tablet 12.5 mg PO DAILY #90 tab-cap 04/16/20 fluticasone propionate 50 1 spray NS BID #1 bottle 05/14/20 mcg/actuation nasal spray,suspension lisinopril 20 mg tablet 40 mg PO DAILY #90 tab 09/06/20 Allergies Allergy/AdvReac Type Severity Reaction Status Date / Time diphenhydramine AdvReac Intermediate HEARTBURN Verified 08/25/19 11:50 zinc [Zinc] AdvReac Intermediate HEARTBURN Verified 08/25/19 11:50 morphine AdvReac vomiting Verified 08/25/19 11:50 General Stated Complaint: RashLesion JUAN: 5 Review of Systems Constitutional Constitutional: Denies fever(s) and Denies weakness Musculoskeletal Musculoskeletal: Denies arthralgias and Denies numbness Integumentary/Breasts Skin/Breast: Denies rash Neurologic Neurologic: Denies numbness and Denies weakness [facility] Medical History (Updated 09/25/20 @ 20:28 by MALACHI Vargas) Chondromalacia patellae, right knee (~03/2019) Surgical History Appendectomy Cholecystectomy Vasectomy Social History Smoking/Tobacco Use Status: Current every day Tobacco Type: smokeless tobacco Smoking risk assessment performed?: Yes Alcohol Intake: former Drug use: Rarely Substance use type: marijuana Current gender identity: male Do you feel safe at home: Yes Do you feel safe in your relationship?: Yes Exam Const General: cooperative, healthy appearing, comfortable and no acute distress Orientation: alert and awake [facility] Head: normal to inspection, normocephalic and atraumatic Eyes General: appearance normal, both eyes and all related structures Conjunctivae: conjunctivae normal Neck Neck: normal visual inspection, trachea midline and supple Resp Effort & Inspection: normal respiratory effort and able to speak in complete sentences Back/Spine/Pelvis Back/spine/pelvis image: 1. Embedded nonengorged dog tick. There is no tenderness, local erythema, warmth, drainage. Skin General skin exam: no rashes or lesions noted Neuro General: patient alert, patient awake, moves all extremities and no focal motor deficits Cognition: normal cognition Speech: speech normal Gait: normal gait Sensory Exam: no sensory deficits noted Psych Appearance: grossly normal Mental Status: mental status grossly normal Course Vital Signs Vital signs: Vital Signs Temperature 36.6 C 09/25/20 20:12 Pulse 97 H 09/25/20 20:12 Respiratory Rate 16 09/25/20 20:12 Blood Pressure 130/88 09/25/20 20:12 Pulse Oximetry 98 09/25/20 20:12 Temperature 36.6 C 09/25/20 20:12 Temperature Source Temporal Artery Scan 09/25/20 20:12 Pulse 97 H 09/25/20 20:12 Respiratory Rate 16 09/25/20 20:12 Respiratory Effort Non-Labored 09/25/20 20:13 Blood Pressure 130/88 09/25/20 20:12 Blood Pressure Position Sitting 09/25/20 20:12 Pulse Oximetry 98 09/25/20 20:12 Oxygen Delivery Method Room Air 09/25/20 20:12 Oxygen Flow Rate 0 09/25/20 20:12 Pain Level 4 09/25/20 20:12
[2020-09-25] MEDS: Doxycycline Hyclate 100 MG CAP 200 MG PO (20:36)
== END 2020-09-25 20:34 | disposition home or self-care (01) ==
PROVIDERS: Emergency Provider Physician Assistant; PCP Family Medicine
DX: S30.860A Insect bite (nonvenomous) of lower back and pelvis, initial encounter (principal); W57.XXXA Bitten or stung by nonvenomous insect and other nonvenomous arthropods, initial encounter
CPT/HCPCS: 90471; 99284; 99283

== ENCOUNTER 2020-12-25 08:13 | Outpatient (CLI) | payer MEDICAID, SELFPAY ==
[2020-12-25 13:00] LABS: Anion Gap 10.8 mmol/L (3-11); BUN 22 mg/dL (7-18); CO2 27.2 mmol/L (21.0-32.0); CREATININE 1.2 mg/dL (0.70-1.30); Calcium 8.8 mg/dL (8.5-10.1); Calculated LDL 80 mg/dL (<100); Chloride 105 mmol/L (98-107); Cholesterol 168 mg/dL (<200); Glucose 93 mg/dL (74-106); HDL Cholesterol 52 mg/dL (40-60); Potassium 3.6 mmol/L (3.5-5.1); Sodium 143 mmol/L (136-145); Triglyceride 181 mg/dL (<150)
== END 2020-12-25 08:14 | disposition home or self-care (01) ==
LOC: LOS 08:14
PROVIDERS: PCP Family Medicine; Visit Provider Family Medicine
DX: E87.1 Hypo-osmolality and hyponatremia (principal); E78.5 Hyperlipidemia, unspecified
CPT/HCPCS: 36415; 80048; 80061

== ENCOUNTER 2021-01-25 16:32 | Emergency (ER) | payer SELFPAY | END 2021-01-25 17:09 | LOC: ER 19:20 | PROVIDERS: PCP Family Medicine | DX: R69 Illness, unspecified (principal) ==

== ENCOUNTER 2021-08-26 21:05 | Emergency (ER) | payer MEDICAID, SELFPAY ==
[2021-08-26 21:13] VITALS: BP 137/97; PULSE 87; RESP 18; TEMP 36.5; O2SAT 97
--- NOTE | 2021-08-26 21:29 | ED.GENADUL_ITS ---
Discharge Plan Disposition Patient Disposition: HOME Condition: Good Discharge Details Clinical Impression: Corneal foreign body Primary Care Provider: Ronen Quintero ED Provider: Milton Owen Home Meds and New Rx's Prescriptions: Continued omeprazole 20 mg capsule,delayed release(DR/EC) 20 mg PO DAILY PRN (Reason: acid reflux) Qty: 90 3RF Rx Instructions: buys OTC fluticasone propionate 50 mcg/actuation spray,suspension 1 spray NS BID Qty: 1 11RF lisinopril 20 mg tablet 40 mg PO DAILY Qty: 180 3RF hydrochlorothiazide 12.5 mg tablet 12.5 mg PO DAILY Qty: 90 3RF acetaminophen [Tylenol] 325 MG tablet 325 mg PO Q8H PRN PRN0RF ibuprofen 600 MG tablet 600 mg PO Q6H PRN (Reason: Pain) Qty: 15 0RF Discharge Instructions Instructions: Corneal Abrasion (ED), Eye Foreign Body (ED) Additional Instructions: Corneal foreign body removed and he should be feeling better in the next 24 hours. Erythromycin ointment 4 times a day for 5 days. Follow-up with Dr. Mendoza in 3 days as planned. Return to ED for any change in vision or eye pain. Medical Decision Making Patient presenting with left eye irritation and foreign body sensation since yesterday while doing yard work. He is irrigated is a number of times and continues to have this sensation. No change in vision and no eye pain. Tetracaine with instilled. Upper lid was everted with no evidence of foreign body but still slight. Fluorescein applied and under Coleman lamp for mobility/corneal abrasion noted at the 4 o'clock position peripherally. With use of slit-lamp and Q-tip foreign body removed without difficulty. Erythromycin ointment started. Tetanus up-to-date. 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 Return to ED for eye pain or vision. HPI General Mode of arrival: ambulatory . Date/Time Provider Initiated Documentation: 08/26/21 21:29 . Limitations to Documentation: no limitations . Information obtained by: patient and RN notes reviewed . HPI Narrative: Patient presents to the ED with left eye irritation. Patient was working in the yard yesterday. He remembers getting some debris in his eye which has remained irritated. He has irrigated it a number of times. He still feels like there is something in it and is constantly blinking and tearing. Denies having actual eye pain. Denies any change in his vision. Related Data Home Medications Medication Instructions Recorded Confirmed acetaminophen 325 mg tablet 325 mg PO Q8H PRN PRN 06/02/16 12/25/20 (Tylenol) ibuprofen 600 mg tablet 600 mg PO Q6H PRN #15 tab 03/25/17 12/25/20 fluticasone propionate 50 1 spray NS BID #1 bottle 05/14/20 12/25/20 mcg/actuation nasal spray,suspension omeprazole 20 mg capsule,delayed 20 mg PO DAILY PRN #90 cap 12/25/20 12/25/20 release lisinopril 20 mg tablet 40 mg PO DAILY #180 tab 05/26/21 hydrochlorothiazide 12.5 mg tablet 12.5 mg PO DAILY #90 tab-cap 05/28/21 Previous Rx's Medication Instructions Recorded ibuprofen 600 mg tablet 600 mg PO Q6H PRN #15 tab 03/25/17 fluticasone propionate 50 1 spray NS BID #1 bottle 05/14/20 mcg/actuation nasal spray,suspension omeprazole 20 mg capsule,delayed 20 mg PO DAILY PRN #90 cap 12/25/20 release lisinopril 20 mg tablet 40 mg PO DAILY #180 tab 05/26/21 hydrochlorothiazide 12.5 mg tablet 12.5 mg PO DAILY #90 tab-cap 05/28/21 Allergies Allergy/AdvReac Type Severity Reaction Status Date / Time diphenhydramine AdvReac Intermediate HEARTBURN Verified 08/26/21 21:18 zinc [Zinc] AdvReac Intermediate HEARTBURN Verified 08/26/21 21:18 morphine AdvReac vomiting Verified 08/26/21 21:18 General Stated Complaint: EyeProblem JUAN: 4 Review of Systems Narrative: As documented in HPI otherwise negative as below. Const: no fever, chills, weakness Resp: no cough, SOB, pleuritic pain CV: no CP, diaphoresis, edema, syncope GI: no abdominal pain, nausea, vomiting, diarrhea Neuro: no headache, numbness, focal weakness, confusion PFSH All Active Problems Corneal foreign body (Acute) Tick bite (Acute) Viral illness (Acute) Cervical disc disease (Acute) Patellofemoral arthritis of right knee (Acute ~04/2019) Knee pain, right anterior (Acute) History of appendectomy (Acute) Status post vasectomy (Acute) Trochanteric bursitis (Acute 03/25/17) Osteoarthritis (Acute) C-spine; and L6-7 narrowing/radiculopathy Nasal congestion (Acute 07/29/17) Injury of left Achilles tendon (Acute 10/31/17) Hypertrophy of nasal turbinates (Acute 07/29/17) Essential hypertension (Acute) good BPs at home Deviated nasal septum (Acute 07/29/17) Medical History Chondromalacia patellae, right knee (~03/2019) GERD (gastroesophageal reflux disease) Hypertension Surgical History Appendectomy Cholecystectomy Vasectomy Social History Smoking/Tobacco Use Status: Current every day Tobacco Type: smokeless tobacco Smoking risk assessment performed?: Yes Alcohol Intake: former Drug use: Rarely Substance use type: marijuana Current gender identity: male Do you feel safe at home: Yes Do you feel safe in your relationship?: Yes Exam Const General: cooperative, no acute distress and well developed HENVA Head: normocephalic and atraumatic Face and sinus: normal facial exam Eyes Alignment and Position: alignment normal Periorbital: periorbital findings normal Eyelids: eyelids normal Conjunctivae: conjunctival abnormality left conjunctival injection Cornea: corneas abnormal on the left fluorescein used, abrasion and foreign body other Pupils: PERRL EOM: EOM intact bilaterally Neck Neck: trachea midline and supple Resp Effort & Inspection: normal respiratory effort Neuro General: patient alert and patient oriented x3 Speech: speech normal Gait: normal gait Course Vital Signs Vital signs: Vital Signs Temperature 97.7 F 08/26/21 21:13 Pulse 87 08/26/21 21:13 Respiratory Rate 18 08/26/21 21:13 Blood Pressure 137/97 H 08/26/21 21:13 Pulse Oximetry 97 08/26/21 21:13 Temperature 97.7 F 08/26/21 21:13 Temperature Source Oral 08/26/21 21:13 Pulse 87 08/26/21 21:13 Respiratory Rate 18 08/26/21 21:13 Respiratory Effort 08/26/21 21:17 Blood Pressure 137/97 H 08/26/21 21:13 Blood Pressure Position Sitting 08/26/21 21:13 Pulse Oximetry 97 08/26/21 21:13 Oxygen Delivery Method Room Air 08/26/21 21:13 Oxygen Flow Rate 0 08/26/21 21:13 Pain Level 5 08/26/21 21:13 Procedures FB Removal Eye Location: eye (L) Topical anesthetic used: tetracaine Foreign body: other Evidence of corneal penetration: No Technique: cotton tip swab Procedure performed under: slit-lamp Post-procedure medication: ophthalmic antibiotic Patient tolerated procedure: well and no complications
[2021-08-26] MEDS: Tetracaine 0.5% 4 ML BTL (21:55)
[2021-08-26] MEDS: Fluorescein STRIPS 100/BOX 1 MG (21:55)
[2021-08-26] MEDS: Erythromycin Ophth Oint 3.5 GM TUBE OS (22:31)
== END 2021-08-26 22:32 | disposition home or self-care (01) ==
PROVIDERS: Emergency Provider Emergency Medicine; PCP Family Medicine
DX: T15.02XA Foreign body in cornea, left eye, initial encounter (principal); X58.XXXA Exposure to other specified factors, initial encounter
CPT/HCPCS: 99283

== ENCOUNTER 2021-09-29 20:08 | Emergency (ER) | payer MEDICAID, SELFPAY ==
[2021-09-29 20:29] VITALS: BP 133/100; PULSE 86; RESP 18; TEMP 37; O2SAT 95
--- NOTE | 2021-09-29 22:01 | W.EDPROG ---
Date of service: 09/29/21 Time of Service: 22:01 Medical Decision Making Patient eloped prior to me being able to evaluate. Nursing was able to triage, and patient was stable at that time, patient left prior to me being able to see or assess him. Uncertain as to why he left. Access and clinics did attempt to get in contact with him, but were unsuccessful to Discharge Plan Disposition Patient Disposition: OTHER Discharge Details Chief Complaint: RespSymp Clinical Impression: URI (upper respiratory infection) Primary Care Provider: Ronen Quintero ED Provider: Khurram Mcelroy Home Meds and New Rx's Prescriptions: No Action omeprazole 20 mg capsule,delayed release(DR/EC) 20 mg PO DAILY PRN (Reason: acid reflux) Qty: 90 3RF Rx Instructions: buys OTC fluticasone propionate 50 mcg/actuation spray,suspension 1 spray NS BID Qty: 1 11RF lisinopril 20 mg tablet 40 mg PO DAILY Qty: 180 3RF hydrochlorothiazide 12.5 mg tablet 12.5 mg PO DAILY Qty: 90 3RF acetaminophen [Tylenol] 325 MG tablet 325 mg PO Q8H PRN PRN ibuprofen 600 MG tablet 600 mg PO Q6H PRN (Reason: Pain) Qty: 15 0RF
--- NOTE | 2021-09-29 22:21 | NUR.NOTE ---
patient triaged and asked to wait in waiting room as ed busy. Patient gone when provider went to waiting room to see patient in er 10.Nursing Note:
== END 2021-09-29 21:27 | disposition other institution (70) ==
PROVIDERS: Emergency Provider Student in an Organized Health Care Education/Training Program; PCP Family Medicine
DX: J06.9 Acute upper respiratory infection, unspecified (principal)

== ENCOUNTER 2022-03-09 17:24 | Emergency (ER) | payer MEDICAID, SELFPAY ==
[2022-03-09] VITALS (8 sets, daily range): BP systolic 140–178; BP diastolic 99–122; PULSE 72–91; RESP 12–24; TEMP 36.8; O2SAT 93–96
[2022-03-09 17:54] LABS: Abs Immature Grans 0.05 10^3/uL (0.0-0.06); Absolute Basophil Count 0.09 10^3/uL (0.0-0.2); Absolute Eosinophil Count 0.12 10^3/uL (0.0-0.7); Absolute Lymphocyte Count 3.33 10^3/uL (1.2-3.4); Absolute Monocyte Count 0.75 10^3/uL (0.1-0.8); Absolute Neutrophil Count 5.99 10^3/uL (1.2-6.7); Basophils % 0.9; Eosinophils % 1.2; HCT 45.2 % (40.0-50.0); HGB 15.7 g/dL (13.5-17.5); Immature Grans % 0.5; Lymphocytes % 32.2; MCH 29.4 pg (27.0-33.0); MCHC 34.7 % (32.0-36.0); MCV 85 fL (80-95); MPV 9.1 fL (8.0-11.0); Monocytes % 7.3; Neutrophils % 57.9; Platelet Count 323 10^3/uL (130-400); RBC 5.34 10^6/uL (4.36-5.78); RDW 12.9 % (11.8-14.1); RDW-SD 39.7 fL; WBC 10.33 10^3/uL (4.4-10.8)
[2022-03-09 18:10] LABS: ALT 23 U/L (16-63); AST 18 U/L (15-37); Alkaline Phosphatase 60 U/L (46-116); Anion Gap 7.7 mmol/L (3-11); BUN 20 mg/dL (7-18); Bilirubin, Total 0.5 mg/dL (0.2-1.0); CO2 29.3 mmol/L (21.0-32.0); CREATININE 1.3 mg/dL (0.70-1.30); Chloride 102 mmol/L (98-107); Estimated GFR 64.07 (mL/min/1.73m2); Glucose 95 mg/dL (74-106); Lipase 48 U/L (73-393); Potassium 3.4 mmol/L (3.5-5.1); Sodium 139 mmol/L (136-145); Total Protein 7.3 g/dL (6.4-8.2)
--- NOTE | 2022-03-09 18:19 | W.ED.GENAD ---
Discharge Plan Disposition Patient Disposition: Home Condition: Stable Discharge Details Clinical Impression: Colitis, Back pain, GI bleeding Primary Care Provider: Ronen Quintero ED Provider: Danny Wade Home Meds and New Rx's Prescriptions: Continued omeprazole 20 mg capsule,delayed release(DR/EC) 20 mg PO DAILY PRN (Reason: acid reflux) Qty: 90 3RF Rx Instructions: buys OTC fluticasone propionate 50 mcg/actuation spray,suspension 1 spray NS BID Qty: 1 11RF lisinopril 20 mg tablet 40 mg PO DAILY Qty: 180 3RF hydrochlorothiazide 12.5 mg tablet 12.5 mg PO DAILY Qty: 90 3RF acetaminophen [Tylenol] 325 MG tablet 325 mg PO Q8H PRN PRN ibuprofen 600 MG tablet 600 mg PO Q6H PRN (Reason: Pain) Qty: 15 0RF Discharge Instructions Instructions: Back Pain (ED), Colitis (ED) Additional Instructions: Work-up in the ER revealed that is most likely mild colitis. Clear liquid diet, advance. Diet to bananas, rice, applesauce, tea, toast. [id number] Tylenol as directed. Cool and/or warm compresses every 2 hours for 20 minutes. Please watch for new or worsening symptoms and return to the ER for any concerns. Lastly, I am giving you the name and number of our surgical team, please contact their office tomorrow to discuss your ER visit, need for outpatient reevaluation regarding your ongoing symptoms, and as we discussed you are overdue for a colonoscopy which may be beneficial to further evaluate your GI bleeding. Referrals: Adeel Shi MD [ [facility]] - Medical Decision Making 56-year-old gentleman with a past with history of hypertension presents first for back pain on the right side worse with movement for the past 2 weeks or so, denies any injury. Questions if potentially he has a kidney stone. Denies history of kidney stone, fever, nausea, flank pain, dysuria or hematuria. Patient noticed today blood in his stool and wonders if the 2 are related. He denies any abdominal pain, nausea, vomiting, black tarry stools, history of GI bleed or colonoscopy. Clinically he appears well, nontoxic. Abdomen is soft, nontender. He does have diffuse right-sided back discomfort which appears to be musculoskeletal in nature. Presentation is not overtly consistent with renal stone. Examination does reveal brown stool which is heme positive. Plan is to obtain IV access, routine screening laboratory values, and reassess. Laboratory values are grossly unremarkable for obvious emergent process, no leukocytosis, anemia, thrombocytopenia, his sodium is 139 potassium 3.4 BUN is 20 creatinine 1.3 with a GFR of 64.07, glucose 95, LFTs unremarkable lipase 48, urinalysis unremarkable, no signs of infection or hematuria. Discussed work-up with patient and family. At this time they are overall relieved but concerned that there is not a clear etiology of his symptoms. We did discuss options and they would like to pursue CT imaging. Will pursue CT imaging with IV contrast. We will also provide 30 IV Toradol. Patient does report some relief with the IV Toradol. CT imaging reveals a nonspecific nonobstructed bowel gas pattern. Mild distal colitis not completely excluded. Moderate bladder wall thickening, cystitis not excluded. Clinically he has no urinary symptoms and his urinalysis is unremarkable. Cystic lymph node versus small cystic structure in the right lower quadrant. Discussed CT findings with patient and family. No obvious emergent process identified. Discussed likely potential diagnosis of mild colitis and will not treat with antibiotics. We will provide referral to surgery to further evaluate his GI bleeding, colitis, and cystic lymph node versus small cystic structure. We discussed the marcos diet. Strict discharge and return precautions were provided. Patient understands, is agreeable to this plan, and has no additional questions or concerns upon discharge. This documentation was generated using [employer] dictation system, please disregard any oddities of phrase or misspellings. Medical Records Medical records reviewed: Yes I reviewed the patient's medical records. Imaging Data Radiologic Study: Attestation: I personally reviewed and interpreted this imaging study as follows: Imaging: CT Scan Radiologist's impression: PROCEDURE INFORMATION: Exam: CT Abdomen And Pelvis With Contrast Exam date and time: 03/09/2022 7:36 PM Age: 56 years old Clinical indication: Other: RT sided back pain, blood in stool TECHNIQUE: Imaging protocol: Computed tomography of the abdomen and pelvis with contrast. Radiation optimization: All CT scans at this facility use at least one of these dose optimization techniques: automated exposure control; mA and/or kV adjustment per patient size (includes targeted exams where dose is matched to clinical indication); or iterative reconstruction. Contrast material: OMNIPAQUE 350; Contrast volume: 100 ml; Contrast route: INTRAVENOUS (IV); COMPARISON: CR LEFT HIP COMPLETE AP PELVIS 12/30/2016 5:49 AM FINDINGS: Liver: Normal. No mass. Gallbladder and bile ducts: Prior cholecystectomy. No ductal dilation. Pancreas: Normal. No ductal dilation. Spleen: Normal. No splenomegaly. Adrenal glands: Normal. No mass. Kidneys and ureters: Renal cysts bilaterally No hydronephrosis. Stomach and bowel: Moderate to large stool in the colon . Mild thickening at the rectosigmoid junction No obstruction. Appendix: No evidence of appendicitis. Intraperitoneal space: Unremarkable. No free air. No significant fluid collection. Vasculature: Unremarkable. No abdominal aortic aneurysm. Lymph nodes: 12 mm cystic lymph node in the right lower quadrant versus cyst Prominent periaortic lymph nodes Urinary bladder: Thickening and under distension Reproductive: Unremarkable as visualized. Bones/joints: Unremarkable. No acute fracture. Soft tissues: Unremarkable. IMPRESSION: Nonspecific nonobstructed bowel gas pattern. Mild thickening at the rectosigmoid junction is nonspecific and may be related to under distention. Mild distal colitis not completely excluded Moderate bladder wall thickening and under distension. Cystitis not excluded Cystic lymph node versus small cystic structure in the right lower quadrant. Comparison with prior images would be helpful to assess for stability Thank you for allowing us to participate in the care of your patient Lab Data Lab results reviewed: Yes I reviewed the patient's lab results. Labs: Laboratory Tests Range/Units 03/09/22 03/09/22 03/09/22 17:45 17:45 19:30 WBC (4.4-10.8) 10^3/uL 10.33 RBC (4.36-5.78) 10^6/uL 5.34 Hgb (13.5-17.5) g/dL 15.7 Hct (40.0-50.0) % 45.2 MCV (80-95) fL 85 MCH (27.0-33.0) pg 29.4 MCHC (32.0-36.0) % 34.7 RDW (11.8-14.1) % 12.9 Plt Count (130-400) 10^3/uL 323 MPV (8.0-11.0) fL 9.1 Immature Gran % 0.5 Neutrophils % 57.9 Lymphocytes % 32.2 Monocytes % 7.3 Eosinophils % 1.2 Basophils % 0.9 Nucleated RBC % (0.0-0.3) % 0.0 Absolute Neutrophils (1.2-6.7) 10^3/uL 5.99 Absolute Lymphocytes (1.2-3.4) 10^3/uL 3.33 Absolute Monocytes (0.1-0.8) 10^3/uL 0.75 Absolute Eosinophils (0.0-0.7) 10^3/uL 0.12 Absolute Basophils (0.0-0.2) 10^3/uL 0.09 Sodium (136-145) mmol/L 139 Potassium (3.5-5.1) mmol/L 3.4 L Chloride (98-107) mmol/L 102 Carbon Dioxide (21.0-32.0) mmol/L 29.3 Anion Gap (3-11) mmol/L 7.7 BUN (7-18) mg/dL 20 H Creatinine (0.70-1.30) mg/dL 1.3 Est GFR (CKD-EPI 2020) (mL/min/1.73m2) 64.07 Glucose (74-106) mg/dL 95 Calcium (8.5-10.1) mg/dL 9.0 Total Bilirubin (0.2-1.0) mg/dL 0.5 AST (15-37) U/L 18 ALT (16-63) U/L 23 Alkaline Phosphatase (46-116) U/L 60 Total Protein (6.4-8.2) g/dL 7.3 Albumin (3.4-5.0) g/dL 4.0 Lipase (73-393) U/L 48 Urine Color (Yellow) Yellow Urine Clarity (Clear) Clear Urine pH (5-8) 6.0 Ur Specific [place] (1.005-1.025) 1.020 Urine Protein (Negative) mg/dL Negative Urine Ketones (Negative) mg/dL Negative Urine Blood (Negative) Negative Urine Nitrite (Negative) Negative Urine Bilirubin (Negative) Negative Urine Urobilinogen (Up TO 0.2) EU/dL 0.2 Ur Leukocyte Esterase (Negative) Negative Urine Glucose (Negative) mg/dL Negative Sign Out No HPI General Mode of arrival: ambulatory. Date/Time Provider Initiated Documentation: 03/09/22 17:36. Limitations to Documentation: no limitations. Information obtained by: patient and family. HPI Narrative: This is a 56-year-old gentleman with a past medical history of hypertension, GERD, presenting to the ER reporting back pain worse with movement for approximately 2 weeks, does not radiate anywhere, then earlier this evening he noticed what he describes as blood in his stool associated with a small blood clot. Patient states that he typically has firm, hard stools in his stool this evening was no difference. He denies history of GI bleed or colonoscopy. He denies recent illness or trauma, fever, chest pain, shortness of breath, radiation of his back pain abdominal pain, nausea, vomiting, dysuria, hematuria, pain in his penis or testicles, black tarry stools. Related Data Home Medications Medication Instructions Recorded Confirmed acetaminophen 325 mg tablet 325 mg PO Q8H PRN PRN 06/02/16 03/09/22 (Tylenol) ibuprofen 600 mg tablet 600 mg PO Q6H PRN Pain #15 tabs 03/25/17 03/09/22 fluticasone propionate 50 1 spray NS BID ##1 05/14/20 03/09/22 mcg/actuation nasal spray,suspension omeprazole 20 mg capsule,delayed 20 mg PO DAILY PRN acid reflux #90 12/25/20 03/09/22 release caps lisinopril 20 mg tablet 40 mg PO DAILY #180 tabs 05/26/21 03/09/22 hydrochlorothiazide 12.5 mg tablet 12.5 mg PO DAILY #90 tab-caps 05/28/21 03/09/22 Previous Rx's Medication Instructions Recorded ibuprofen 600 mg tablet 600 mg PO Q6H PRN Pain #15 tabs 03/25/17 fluticasone propionate 50 1 spray NS BID ##1 05/14/20 mcg/actuation nasal spray,suspension omeprazole 20 mg capsule,delayed 20 mg PO DAILY PRN acid reflux #90 12/25/20 release caps lisinopril 20 mg tablet 40 mg PO DAILY #180 tabs 05/26/21 hydrochlorothiazide 12.5 mg tablet 12.5 mg PO DAILY #90 tab-caps 05/28/21 Allergies Allergy/AdvReac Type Severity Reaction Status Date / Time diphenhydramine AdvReac Intermediate HEARTBURN Verified 03/09/22 17:35 zinc [Zinc] AdvReac Intermediate HEARTBURN Verified 03/09/22 17:35 morphine AdvReac vomiting Verified 03/09/22 17:35 General Stated Complaint: Abd Prob JUAN: 3 Review of Systems Constitutional Constitutional: Denies fever(s) and Denies weakness Cardiovascular Cardiovascular: Denies chest pain and Denies dyspnea Respiratory Respiratory: Denies cough and Denies dyspnea Gastrointestinal Gastrointestinal: Denies abdominal pain, Denies melena, Reports hematochezia, Denies constipation, Denies diarrhea, Denies nausea and Denies vomiting Genitourinary Genitourinary: Denies dysuria Musculoskeletal Musculoskeletal: Reports back pain Integumentary/Breasts Skin/Breast: Denies rash Neurologic Neurologic: Denies weakness Hematologic/Lymphatic Hematologic/Lymphatic: Denies easy bleeding and Denies easy bruising PFSH All Active Problems Colitis (Acute) Back pain (Acute) GI bleeding (Chronic) Tick bite (Acute) Viral illness (Acute) Cervical disc disease (Acute) Patellofemoral arthritis of right knee (Acute ~04/2019) Knee pain, right anterior (Acute) History of appendectomy (Acute) Status post vasectomy (Acute) Trochanteric bursitis (Acute 03/25/17) Osteoarthritis (Acute) C-spine; and L6-7 narrowing/radiculopathy Nasal congestion (Acute 07/29/17) Injury of left Achilles tendon (Acute 10/31/17) Hypertrophy of nasal turbinates (Acute 07/29/17) Essential hypertension (Acute) good BPs at home Deviated nasal septum (Acute 07/29/17) Medical History Chondromalacia patellae, right knee (~03/2019) GERD (gastroesophageal reflux disease) Hypertension Surgical History Appendectomy Cholecystectomy Vasectomy Social History Smoking/Tobacco Use Status: Current every day Tobacco Type: smokeless tobacco Smoking risk assessment performed?: Yes Alcohol Intake: current Alcohol Intake frequency: a few times a month Alcohol type: beer Drug use: Never Substance use type: marijuana Current gender identity: male Do you feel safe at home: Yes Do you feel safe in your relationship?: Yes Exam Const General: cooperative, healthy appearing, comfortable and no acute distress Orientation: alert and awake [facility] Head: normal to inspection, normocephalic and atraumatic Mouth: moist mucous membranes Eyes General: appearance normal, both eyes and all related structures Conjunctivae: conjunctivae normal Neck Neck: normal visual inspection, full ROM, trachea midline and supple Resp Effort & Inspection: normal respiratory effort and able to speak in complete sentences Auscultation: clear to auscultation bilaterally Cardio Rate: regular rate Rhythm: regular rhythm GI Inspection: normal to inspection Palpation: soft, not firm, no guarding, no pulsatile masses and nontender Auscultation: normal bowel sounds Rectal Exam: visual inspection normal, normal sphincter tone and heme positive stool trace Back/Spine/Pelvis Back: no CVA tenderness and back tenderness (Diffuse, mild, lumbar right-sided) Skin General skin exam: no rashes or lesions noted Neuro General: patient alert, patient awake, moves all extremities and no focal motor deficits Cognition: normal cognition Speech: speech normal Gait: normal gait Motor: muscle tone normal throughout Sensory Exam: no sensory deficits noted Extrem General: normal to inspection, full ROM and capillary refill normal Psych Appearance: grossly normal Mental Status: mental status grossly normal Course Vital Signs Vital signs: Vital Signs Temperature 36.8 C 03/09/22 17:28 Pulse 89 03/09/22 17:28 Respiratory Rate 20 03/09/22 17:28 Blood Pressure 172/122 H 03/09/22 17:28 Pulse Oximetry 95 03/09/22 17:28 Temperature 36.8 C 03/09/22 17:28 Temperature Source Oral 03/09/22 17:28 Pulse 89 03/09/22 17:28 Respiratory Rate 20 03/09/22 17:28 Respiratory Effort 03/09/22 17:37 Blood Pressure 172/122 H 03/09/22 17:28 Blood Pressure Position Sitting 03/09/22 17:28 Pulse Oximetry 95 03/09/22 17:28 Oxygen Delivery Method Room Air 03/09/22 17:28 Oxygen Flow Rate 0 03/09/22 17:28 Pain Level 0 03/09/22 17:28 Lab/Test Results Lab/Test Results: Laboratory Tests Range/Units 03/09/22 03/09/22 17:45 17:45 WBC (4.4-10.8) 10^3/uL 10.33 RBC (4.36-5.78) 10^6/uL 5.34 Hgb (13.5-17.5) g/dL 15.7 Hct (40.0-50.0) % 45.2 MCV (80-95) fL 85 MCH (27.0-33.0) pg 29.4 MCHC (32.0-36.0) % 34.7 RDW (11.8-14.1) % 12.9 Plt Count (130-400) 10^3/uL 323 MPV (8.0-11.0) fL 9.1 Immature Gran % 0.5 Neutrophils % 57.9 Lymphocytes % 32.2 Monocytes % 7.3 Eosinophils % 1.2 Basophils % 0.9 Nucleated RBC % (0.0-0.3) % 0.0 Absolute Neutrophils (1.2-6.7) 10^3/uL 5.99 Absolute Lymphocytes (1.2-3.4) 10^3/uL 3.33 Absolute Monocytes (0.1-0.8) 10^3/uL 0.75 Absolute Eosinophils (0.0-0.7) 10^3/uL 0.12 Absolute Basophils (0.0-0.2) 10^3/uL 0.09 Sodium (136-145) mmol/L 139 Potassium (3.5-5.1) mmol/L 3.4 L Chloride (98-107) mmol/L 102 Carbon Dioxide (21.0-32.0) mmol/L 29.3 Anion Gap (3-11) mmol/L 7.7 BUN (7-18) mg/dL 20 H Creatinine (0.70-1.30) mg/dL 1.3 Est GFR (CKD-EPI 2020) (mL/min/1.73m2) 64.07 Glucose (74-106) mg/dL 95 Calcium (8.5-10.1) mg/dL 9.0 Total Bilirubin (0.2-1.0) mg/dL 0.5 AST (15-37) U/L 18 ALT (16-63) U/L 23 Alkaline Phosphatase (46-116) U/L 60 Total Protein (6.4-8.2) g/dL 7.3 Albumin (3.4-5.0) g/dL 4.0 Lipase (73-393) U/L 48
[2022-03-09] MEDS: Normal Saline 1,000 ML 1000 ML IV (18:57)
--- NOTE | 2022-03-09 19:15 | DI.CT_ITS ---
Exam(s) CT ABDOMEN PELVIS W EXAM: CT ABDOMEN PELVIS W CLINICAL HISTORY: R sided back pain, blood in stool TECHNIQUE: Imaging Protocol: Axial computed tomography images with coronal and sagittal reformatted images were created and reviewed CONTRAST MATERIAL: Intravenous: Omnipaque 350 Contrast volume:100 mL Oral: No COMPARISON: No priors for comparison. FINDINGS: ABDOMEN: Lung Bases: Normal where visualized. Liver: Normal density. There is a 2 x 1.7 cm hypodense lesion in the posterior aspect of the right lo be of the liver. Portal, Superior Mesenteric, and Splenic Veins: Unremarkable. Gallbladder and Biliary Tract: Status post cholecystectomy. No significant biliary ductal dilatation . Pancreas: Normal density, no abnormal calcifications or inflammatory process. Spleen: Normal. Adrenals: No masses seen. Kidneys: Normal size, contour and axis. No radiodense stones or obstructive uropathy. There are bilat eral simple renal cysts. The largest is in the left kidney and measures 3.6 x 4.7 cm. No solid jordan l masses are identified. Abdominal Aorta: Abdominal portion non-dilated. There is atherosclerosis present. Bowel: No evidence of bowel obstruction. There is a question of mild thickening of the wall at the r ectosigmoid junction. No evidence of appendicitis. Peritoneal Cavity: No ascites, collection or mesenteric inflammatory response. No free air. Lymph Nodes: Within normal limits. There is a 1.4 x 1.1 cm round hypodense nodule in the right lower quadrant. This may represent a lymph node versus a cyst. Bones: Within normal limits for the patient's age. Soft Tissues: Unremarkable. PELVIS: Bladder: There is diffuse thickening of the wall of the urinary bladder. Reproductive Organs: Unremarkable as visualized. Lymph Nodes: Within normal limits. Bones: Within normal limits for the patient's age. IMPRESSION: 1. Question of mild thickening of the wall of the rectosigmoid junction. This may be due to underdis tention but colitis cannot be excluded. 2. Thickening of the wall of the urinary bladder. This may be due to underdistention but cystitis sh ould be considered. Please correlate clinically. 3. Cystic structure measuring 1.4 x 1.1 cm in the right lower quadrant. This may represent a lymph n ode or small cystic structure. This is nonspecific. Comparison with prior examinations may be usefu l to assess for stability. RADIATION DOSE DELIVERED: Total DLP DATA REPOSITORY: All CT scans at this facility are submitted to the National Radiology Data Registry (NRDR) Dose Index Registry (DIR) with the [employer] (ACR). RADIATION OPTIMIZATION: All CT scans at this facility use at least one of these dose optimization te chniques: automated exposure control; mA and/or kV adjustment per patient size (includes targeted exa ms where dose is matched to clinical indication); or iterative reconstruction.
[2022-03-09 19:38] LABS: Bilirubin Negative (Negative); Blood Negative (Negative); Clarity Clear (Clear); Glucose Negative (Negative); Ketones Negative (Negative); Leukocyte Esterase Negative (Negative); Nitrite Negative (Negative); Urobilinogen 0.2 EU/dL (Up TO 0.2)
[2022-03-09] MEDS: Omnipaque 350 MG/ML 100 ML BTL IJ (19:42)
--- NOTE | 2022-03-09 19:57 | DI.VRAD_ITS ---
PROCEDURE INFORMATION: Exam: CT Abdomen And Pelvis With Contrast Exam date and time: 03/09/2022 7:36 PM Age: 56 years old Clinical indication: Other: RT sided back pain, blood in stool TECHNIQUE: Imaging protocol: Computed tomography of the abdomen and pelvis with contrast. Radiation optimization: All CT scans at this facility use at least one of these dose optimization techniques: automated exposure control; mA and/or kV adjustment per patient size (includes targeted exams where dose is matched to clinical indication); or iterative reconstruction. Contrast material: OMNIPAQUE 350; Contrast volume: 100 ml; Contrast route: INTRAVENOUS (IV); COMPARISON: CR LEFT HIP COMPLETE AP PELVIS 12/30/2016 5:49 AM FINDINGS: Liver: Normal. No mass. Gallbladder and bile ducts: Prior cholecystectomy. No ductal dilation. Pancreas: Normal. No ductal dilation. Spleen: Normal. No splenomegaly. Adrenal glands: Normal. No mass. Kidneys and ureters: Renal cysts bilaterally No hydronephrosis. Stomach and bowel: Moderate to large stool in the colon . Mild thickening at the rectosigmoid junction No obstruction. Appendix: No evidence of appendicitis. Intraperitoneal space: Unremarkable. No free air. No significant fluid collection. Vasculature: Unremarkable. No abdominal aortic aneurysm. Lymph nodes: 12 mm cystic lymph node in the right lower quadrant versus cyst Prominent periaortic lymph nodes Urinary bladder: Thickening and under distension Reproductive: Unremarkable as visualized. Bones/joints: Unremarkable. No acute fracture. Soft tissues: Unremarkable. IMPRESSION: Nonspecific nonobstructed bowel gas pattern. Mild thickening at the rectosigmoid junction is nonspecific and may be related to under distention. Mild distal colitis not completely excluded Moderate bladder wall thickening and under distension. Cystitis not excluded Cystic lymph node versus small cystic structure in the right lower quadrant. Comparison with prior images would be helpful to assess for stability Dictated and Authenticated by: Wagner Yadav MD. Ordering:JUHI Delgado MD
[2022-03-09] MEDS: Ketorolac 30 MG/ML VIAL IVP (20:22)
--- NOTE | 2022-03-10 13:14 | NUR.NOTE ---
Nursing Note: Accessed chart to view provider note for referral to surgical team. Pt was referred to them, a referral was faxed to the office now, is aware and will call later to schedule the appt. asked how long pt can go with this diagnosis without seeing a provider. I did not give advice, told her to call PCP for advice and to return to ED if symptoms get worse.
== END 2022-03-09 20:51 | disposition home or self-care (01) ==
PROVIDERS: Emergency Provider Physician Assistant; PCP Family Medicine
DX: K52.89 Other specified noninfective gastroenteritis and colitis (principal); M54.9 Dorsalgia, unspecified; K92.2 Gastrointestinal hemorrhage, unspecified; R10.9 Unspecified abdominal pain
CPT/HCPCS: 80053; 83690; 96361; 96374; 99285; 74177; 81003; 85025; 99284; J1885; J3490

== ENCOUNTER 2022-03-31 08:14 | Day surgery (SDC) | payer MEDICAID, SELFPAY ==
--- NOTE | 2022-03-30 19:18 | PDOC.DSDIS_ITS ---
Date of service: 03/31/22 Time of Service: 10:17 Discharge Plan Disposition Patient Disposition: Home Discharge Details Reason For Visit: colonoscopy Attending Provider: Adeel Shi Primary Care Provider: Ronen Quintero Home Meds and New Rx's Prescriptions: New mesalamine 1,000 mg suppository 1 g SD QHS 21 Days Qty: 30 2RF Rx Instructions: Use one suppository every morning Continued omeprazole 20 mg capsule,delayed release(DR/EC) 20 mg PO DAILY PRN (Reason: acid reflux) Qty: 90 3RF Rx Instructions: buys OTC fluticasone propionate 50 mcg/actuation spray,suspension 1 spray NS BID Qty: 1 11RF lisinopril 20 mg tablet 40 mg PO DAILY Qty: 180 3RF hydrochlorothiazide 12.5 mg tablet 12.5 mg PO DAILY Qty: 90 3RF acetaminophen [Tylenol] 325 MG tablet 325 mg PO Q8H PRN PRN ibuprofen 600 MG tablet 600 mg PO Q6H PRN (Reason: Pain) Qty: 15 0RF Discontinued polyethylene glycol 3350 17 gram/dose powder 238 g PO ONCE Qty: 238 0RF Rx Instructions: take per colonoscopy instructions bisacodyl [Dulcolax (bisacodyl)] 5 mg tablet,delayed release (DR/EC) 5 mg PO ONCE Qty: 4 0RF Rx Instructions: take per colonoscopy instructions Discharge Instructions Instructions: Ulcerative Colitis (GEN) Additional Instructions: 1. If tolerated, consume a soft, low fiber diet for 1-2 days. 2[address] Do not drive, drink alcohol, operate machinery, make critical decisions, or do activities that require coordination or balance for 24 hours. 3. Because air was put into your colon during the procedure, expelling air from your rectum (passing gas or farting) is normal. 4. You may not have a bowel movement for 1-3 days because of the colonoscopy prep. This is normal. 5. Go directly to the emergency room if you notice any of the following: Develop chills (warm to touch), or if you have a thermometer and your temperature is above 101 Difficulty breathing or difficultly swallowing Persistent vomiting Severe abdominal pain, other than gas cramps Severe chest pain Black, tarry stools Any bleeding ? exceeding one tablespoon 6. Call your physician if the site where your intravenous was started becomes red, swollen, painful, and warm to touch. 7. Your physician has reviewed your pre-procedure medications. Please continue to take those medications as previously ordered. You will be given specific information/education regarding any changes to your medications before leaving. Activity:: Activity as Tolerated Diet:: As Tolerated Discharge Orders Discharge Orders: Discharge Order (Routine); Ordered 03/30/22 Ordered By: Adeel Shi DS: Diagnosis Discharge Diagnosis (1) Ulcerative colitis: Status: Chronic Asessment and Plan: Start taking mesalamine suppositories as directed I will call you with results of the biopsies I will make a referral to [facility] gastroenterology for long-term management of ulcerative colitis.
--- NOTE | 2022-03-30 19:19 | W.COLOREPORT ---
Date of service: 03/31/22 Time of Service: 10:11 Colonoscopy Report Date of procedure: 03/31/22 Pre-op diagnosis general: Melena Post-op diagnosis procedure note: other (Ulcerative colitis) Procedure: Colonoscopy Surgeon: Adeel Shi Anesthesia Type: General:No Airway Estimated blood loss (mL): 15 Pathology: other (Rectal ulcers) Complications: None Disposition: same day Indications: Dann is a 56-year-old male has been suffering from hematochezia for several weeks. Prep: Miralax/Dulcolax Procedure Start Time: 09:50 Procedure End Time: 10:11 Retraction Time: 12 Findings: Diffuse inflammation of the rectum extending from anus to approximately 30 cm Procedure Description: After the induction of monitored anesthetic care, and with the patient in left lateral decubitus position, I began by performing an external anorectal exam.? Perineum and skin were normal, as was the anal verge.? There was no evidence of external hemorrhoids.? Next, I performed a digital rectal exam.? I did not appreciate any abnormal findings.? Next, I advanced a colonoscope into the rectal vault.? I performed retroflexion.? There was diffuse inflammation of the rectal vault with countless ulcers down to the anus.? Using insufflation, I then advanced the colonoscope beyond the rectal folds and into the sigmoid colon before advancing towards the cecum.? The ulceration of the rectum was heaviest distally, with thinning of the lesions around 25 cm from the anal verge, and intermittent ulceration up to 30 cm. The quality of the prep was excellent.? The scope was noted to be in the cecum by identification of the ileocecal valve and appendiceal orifice.? I then began withdrawing the colonoscope using repeated irrigation as necessary for full evaluation of the colonic mucosa. ?Once the scope was withdrawn to the level of the rectum, great care was taken to examine portions of the rectal folds.? Again, I observed ulceration around the entire rectum most consistent with ulcerative colitis. I performed biopsies of the rectum. I used cold forceps, and there was minimal bleeding. Finally, the scope was withdrawn and the patient was brought to the same-day surgery recovery unit as the anesthetic wore off. ?The findings and instructions were shared with the patient prior to discharge.
[2022-03-31 08:30] VITALS: BP 111/80; PULSE 55; RESP 16; TEMP 36.6; O2SAT 97
[2022-03-31] MEDS: Lactated Ringers 1,000 ML 80 ML IV (08:57)
--- NOTE | 2022-03-31 09:39 | ANES.PREOP_ITS ---
General Info Date of Service Date Performed: 03/31/22 Height: 5 ft 6 in Weight: 94.5 kg Body Mass Index (BMI): 33.6 Surgical Procedure: Operation Date: 03/31/22 09:35 Proposed Procedure Side Surgeon muna Shi MD Meds Allergies and Home Medications Allergies Allergy/AdvReac Type Severity Reaction Status Date / Time diphenhydramine AdvReac Intermediate HEARTBURN Verified 03/31/22 08:44 morphine AdvReac Intermediate vomiting Verified 03/31/22 08:44 zinc [Zinc] AdvReac Intermediate HEARTBURN Verified 03/31/22 08:44 Home Medication Medication Instructions Recorded acetaminophen 325 mg tablet 325 mg PO Q8H PRN PRN 06/02/16 (Tylenol) ibuprofen 600 mg tablet 600 mg PO Q6H PRN Pain #15 tabs 03/25/17 fluticasone propionate 50 1 spray NS BID ##1 05/14/20 mcg/actuation nasal spray,suspension omeprazole 20 mg capsule,delayed 20 mg PO DAILY PRN acid reflux #90 12/25/20 release caps lisinopril 20 mg tablet 40 mg PO DAILY #180 tabs 05/26/21 hydrochlorothiazide 12.5 mg tablet 12.5 mg PO DAILY #90 tab-caps 05/28/21 Current Visit Medications: Current Medications Generic Name Dose Route Start Last Admin Trade Name Freq PRN Reason Stop Dose Admin Hyoscyamine Sulfate 0.125 mg 03/30/22 19:20 Hyoscyamine 0.125 Mg Sl/Oral/Chew SL DIRECTED PRN Ringer's Solution 1,000 mls @ 80 mls/hr 03/31/22 06:00 03/31/22 08:57 IV 04/29/22 23:59 80 mls/hr INFUSION TONY Administration IV Miscellaneous Supplies 1 each 03/31/22 06:00 Iv Access IV 04/29/22 23:59 DIRECTED TONY Ondansetron HCl 4 mg 03/30/22 19:20 Ondansetron 4 Mg/2 Ml Vial IVP Q4H PRN PRN Nausea / Vomiting Sodium Chloride 0 ml 03/31/22 06:00 Normal Saline Flush 10 Ml Syr IV 04/29/22 23:59 PRN PRN Sodium Chloride 0 ml 03/31/22 06:00 Normal Saline 10 Ml Vial IJ 04/29/22 23:59 DIRECTED PRN Sterile Water 0 ml 03/31/22 06:00 Water,Injection,Sterile 10 Ml Vial IJ 04/29/22 23:59 DIRECTED PRN PFSH Active Problems Active Problems: Problem Status Onset Code Deviated nasal septum 07/29/17 J34.2 Essential hypertension I10 Hypertrophy of nasal turbinates 07/29/17 J34.3 Injury of left Achilles tendon 10/31/17 S86.002A Nasal congestion 07/29/17 R09.81 Osteoarthritis M19.90 Trochanteric bursitis 03/25/17 M70.60 Status post vasectomy Z98.52 History of appendectomy Z90.49 Knee pain, right anterior M25.561 Patellofemoral arthritis of right knee ~04/2019 M17.11 Cervical disc disease M50.90 Viral illness B34.9 Tick bite W57.XXXA Colitis K52.9 Back pain M54.9 GI bleeding K92.2 Medical History Medical History Chondromalacia patellae, right knee (~03/2019) GERD (gastroesophageal reflux disease) Hypertension Surgical History Surgical History Appendectomy Cholecystectomy Injury of finger Vasectomy Tobacco Smoking/Tobacco Use Status: Current every day Tobacco Type: smokeless tobacco Passive smoking exposure: No Alcohol Alcohol Intake: current Alcohol intake frequency: a few times a month Alcohol type: beer Substance Use Substance use: Never Substance use type: marijuana Vital Signs and Lab Results Vital Signs Most Recent Vital Signs in EMR: Most Recent Vital Signs Temp Pulse Resp BP Pulse Ox 36.6 C 55 L 16 111/80 97 03/31/22 08:30 03/31/22 08:30 03/31/22 08:30 03/31/22 08:30 03/31/22 08:30 Lab Results Blood Type / Crossmatch: No Data to Display Complete Blood Count: White Blood Count 10.33 10^3/uL (4.4-10.8) 03/09/22 17:45 Red Blood Count 5.34 10^6/uL (4.36-5.78) 03/09/22 17:45 Hemoglobin 15.7 g/dL (13.5-17.5) 03/09/22 17:45 Hematocrit 45.2 % (40.0-50.0) 03/09/22 17:45 Platelet Count 323 10^3/uL (130-400) 03/09/22 17:45 Complete Metabolic Panel: Sodium 139 mmol/L (136-145) 03/09/22 17:45 Potassium 3.4 mmol/L (3.5-5.1) L 03/09/22 17:45 Chloride 102 mmol/L (98-107) 03/09/22 17:45 Carbon Dioxide 29.3 mmol/L (21.0-32.0) 03/09/22 17:45 BUN 20 mg/dL (7-18) H 03/09/22 17:45 Creatinine 1.3 mg/dL (0.70-1.30) 03/09/22 17:45 Est GFR (CKD-EPI 2020) 64.07 (mL/min/1.73m2) 03/09/22 17:45 Calcium 9.0 mg/dL (8.5-10.1) 03/09/22 17:45 Albumin 4.0 g/dL (3.4-5.0) 03/09/22 17:45 Glucose 95 mg/dL (74-106) 03/09/22 17:45 Liver Function Panel: Alanine Aminotransferase (ALT/SGPT) 23 U/L (16-63) 03/09/22 17: 45 Aspartate Amino Transf (AST/SGOT) 18 U/L (15-37) 03/09/22 17:45 Coagulation Panel: No Data to Display Cardiac Panel: No Data to Display Arterial Blood Gas: No Data to Display Venous Blood Gas: No Data to Display Pancreas Panel: Lipase 48 U/L (73-393) 03/09/22 17:45 Thyroid Panel: No Data to Display Infectious Disease: No Data to Display Blood Cultures: No Data to Display Toxicology Panel: No Data to Display Anesthesia Assessment and Plan Anesthesia History Personal History: No History of Anesthesia Complications Family History: No Family History of Anesthesia Complications Exercise Tolerance Exercise Tolerance: Metabolic Equivalents>4 Pertinent Negatives Pertinent Negatives: No Symptoms of GERD, No Major Cardiovascular Symptoms or Complaints and No Major Pulmonary Symptoms or Complaints Cardiac & Pulmonary Exam Cardiac Exam: Normal S1/S2 Heart Sounds Pulmonary Exam: Clear Bilateral Breath Sounds Implantable Cardiac Device Does patient have a Pacemaker or an ICD?: No Airway Exam Known Difficult Airway: No Mallampati Class: 1 Mouth Opening: Normal (> 3cm) Thyromental Distance: Greater than 3 cm Neck Range of Motion: Full ROM Neck Circumference: Normal Teeth Condition: Normal Dentition ASA Classification ASA Score: ASA 2 Emergency Case?: No NPO Status NPO Status: NPO Clears >2 hours, Solids >8 hours Anesthesia Plan Resuscitation Status: Full Code Anesthesia Technique: General Anesthesia Airway Planned: Natural Airway Monitors Used: Standard Monitors
[2022-03-31 09:40] VITALS: BMI 33.6
--- NOTE | 2022-03-31 10:07 | BOWEL_PTH ---
PATIENT: Dann Matthew LOC: [facility] U#:[id number] AGE/SX: 56/M ROOM: RE03/31/[address]: Adeel Shi MD : 1965 BED: DIS: 03/31/2022 SPEC #: [id number] RECD: 03/31/22 12:27 STATUS: ZACH REQ #: [id number] LOTUS: 03/31/22 10:[address]: Adeel Shi DEPT: Surgical Specimen RECD BY: Thelma Mckay ENTERED: 03/31/22 12:28 SP TYPE: Bowel OTHR DR: Ronen Quintero MD Tissues: 1 - BIOPSY BOWEL Procedures: GROSS AND MICRO LEVEL 4 Comments: [id number]
[2022-03-31 10:25] VITALS: BP 102/70; PULSE 68; RESP 16; TEMP 36.3; O2SAT 94
--- NOTE | 2022-03-31 10:42 | W.ANESPOSTOP ---
Postoperative Evaluation Date, Time and Location Date Performed: 03/31/22 Time Performed: 10:42 Patient Location: Day Surgery Unit Vital Signs Most Recent Imported Vital Signs: Most Recent Vital Signs Temp Pulse Resp BP Pulse Ox 36.6 C 55 L 16 111/80 97 03/31/22 08:30 03/31/22 08:30 03/31/22 08:30 03/31/22 08:30 03/31/22 08:30 Most Recent Manually Entered Vital Signs: Adult Blood Pressure: 102/70 Heart Rate: 68 Respirations: 16 Oxygen Saturation (%): 94 Temperature (C): 36.3 C Pain Score (0-10 Scale): 0 Assessment Mental Status: Awake (Alert & Oriented to Patient Baseline) Airway and Respiratory Function: Patent airway with normal (patient baseline) respiratory exam Cardiovascular Function: Hemodynamically Stable Hydration Status: Adequately Hydrated Nausea & Vomiting: No Nausea or Vomiting Pain: Pt. Denies Any Pain Peripheral Nerve Block: Patient did not receive a nerve block
[2022-03-31 10:44] VITALS: BP 102/70; PULSE 68; RESP 16; TEMPC 36.3; O2SAT 94
[2022-03-31 11:05] VITALS: BP 106/79; PULSE 54; RESP 16; TEMP 36.2; O2SAT 97
== END 2022-03-31 11:25 | disposition home or self-care (01) ==
LOC: SUR 08:14
PROVIDERS: PCP Family Medicine; Visit Provider Surgery
PROC: 0DJD8ZZ Inspection of Lower Intestinal Tract, Via Natural or Artificial Opening Endoscopic (ICD-10-PCS; CPT 45378; principal; 2022-03-31 09:30)
DX: K92.1 Melena (principal); K62.6 Ulcer of anus and rectum; K62.89 Other specified diseases of anus and rectum
CPT/HCPCS: 45380; 88305

== ENCOUNTER 2022-07-05 15:00 | Outpatient (REF) | payer MEDICAID, SELFPAY ==
[2022-07-10 20:40] LABS: Calprotectin 58.2 mcg/g
== END 2022-07-05 15:01 | disposition home or self-care (01) ==
LOC: LBN 15:00
PROVIDERS: PCP Family Medicine; Visit Provider Nurse Practitioner Adult Health
DX: K62.89 Other specified diseases of anus and rectum (principal)
CPT/HCPCS: 83993

== ENCOUNTER 2022-07-10 13:06 | Emergency (ER) | payer MEDICAID, SELFPAY ==
[2022-07-10 13:10] VITALS: BP 115/86; PULSE 90; RESP 18; TEMP 36.4; O2SAT 98
[2022-07-10 14:12] VITALS: BP 117/82; PULSE 83; RESP 18; O2SAT 94
[2022-07-10 14:29] VITALS: BP 101/71; PULSE 87; RESP 18; TEMP 36.9; O2SAT 97
[2022-07-10 14:31] VITALS: RESP 18
--- NOTE | 2022-07-10 14:43 | W.ED.GENAD ---
Discharge Plan Disposition Patient Disposition: Home Condition: Improving Discharge Details Clinical Impression: Adverse drug reaction, Hypotension due to drugs Primary Care Provider: Ronen Quintero ED Provider: Ascencion Weiss Home Meds and New Rx's Prescriptions: Continued omeprazole 20 mg capsule,delayed release(DR/EC) 20 mg PO DAILY PRN (Reason: acid reflux) Qty: 90 3RF Rx Instructions: buys OTC amlodipine 10 mg tablet 10 mg PO DAILY Qty: 30 3RF hydrochlorothiazide 12.5 mg tablet 12.5 mg PO DAILY Qty: 90 0RF lisinopril 20 mg tablet 40 mg PO DAILY Qty: 180 0RF acetaminophen [Tylenol] 325 MG tablet 325 mg PO Q8H PRN PRN ibuprofen 600 MG tablet 600 mg PO Q6H PRN (Reason: Pain) Qty: 15 0RF Discharge Instructions Instructions: Hypotension (ED) Additional Instructions: Over the weekend please change the amlodipine to 10.5 mg if your tablets are scored and you are able to cut them. Continue to closely monitor your blood pressure and if you are severely symptomatic or passing out return immediately to the emergency department for reassessment. Otherwise follow-up with your primary care provider and inform them of your adverse reaction to your medication changes. Referrals: Ronen Quintero MD [Primary Care Provider] - 1 week Discharge Data Discharge Date/Time-TO BE ENTERED AT DEPARTURE: 07/10/22 17:51 Medical Decision Making Patient presenting to the emergency department for chief complaint of low blood pressure. Patient reports that yesterday evening he took the first dose of his increased blood pressure medication and went from 5 mg to 10 mg of his amlodipine. This morning was his second morning working out and he noticed after the gym that he was feeling lightheaded. Checked his blood pressure and noted that he was hypotensive. Attempted to contact his primary care office which he was unable to so came to the emergency department. By the time he presented the emergency department most of his symptoms were resolved and he was feeling fine. We continue to monitor blood pressure and patient was slightly hypotensive but no longer symptomatic. Physical exam is unremarkable. I do feel this is an adverse medication reaction. Patient was encouraged to decrease the dose to 7.5 to see if this better helps his symptoms along with his blood pressure. He was informed though if he continues to be hypotensive that he should go back to 5 mg and follow-up with his primary care provider. After discussion of diagnosis and plan of care patient has no further needs, questions, or concerns and states clear understanding to return to the emergency department for any worsening symptoms. This documentation was generated using [employer] dictation system, please disregard any oddities of phrase or misspellings. HPI General Mode of arrival: ambulatory. Date/Time Provider Initiated Documentation: 07/10/22 14:43. Limitations to Documentation: no limitations. Information obtained by: patient, family and RN notes reviewed. History of Present Illness 56 year old M presents to the emergency department with the chief complaint of Low blood pressure, described as moderate, Patient started experiencing this hour(s) (2) and it has been now resolved. No relieving factors improve symptom(s), Other factors that worsen symptoms (Exercise) . Patient notes no other symptoms.. Patient did receive the following treatments prior to arrival, none Related Data Home Medications Medication Instructions Recorded Confirmed acetaminophen 325 mg tablet 325 mg PO Q8H PRN PRN 06/02/16 07/10/22 (Tylenol) ibuprofen 600 mg tablet 600 mg PO Q6H PRN Pain #15 tabs 03/25/17 07/10/22 omeprazole 20 mg capsule,delayed 20 mg PO DAILY PRN acid reflux #90 12/25/20 07/10/22 release caps hydrochlorothiazide 12.5 mg tablet 12.5 mg PO DAILY #90 tab-caps 06/10/22 07/10/22 lisinopril 20 mg tablet 40 mg PO DAILY #180 tabs 06/10/22 07/10/22 amlodipine 10 mg tablet 10 mg PO DAILY #30 tabs 07/09/22 07/10/22 Previous Rx's Medication Instructions Recorded ibuprofen 600 mg tablet 600 mg PO Q6H PRN Pain #15 tabs 03/25/17 omeprazole 20 mg capsule,delayed 20 mg PO DAILY PRN acid reflux #90 12/25/20 release caps hydrochlorothiazide 12.5 mg tablet 12.5 mg PO DAILY #90 tab-caps 06/10/22 lisinopril 20 mg tablet 40 mg PO DAILY #180 tabs 06/10/22 amlodipine 10 mg tablet 10 mg PO DAILY #30 tabs 07/09/22 Allergies Allergy/AdvReac Type Severity Reaction Status Date / Time diphenhydramine AdvReac Intermediate HEARTBURN Verified 07/09/22 08:03 morphine AdvReac Intermediate vomiting Verified 07/09/22 08:03 zinc [Zinc] AdvReac Intermediate HEARTBURN Verified 07/09/22 08:03 General Stated Complaint: GenMedical JUAN: 4 Review of Systems Narrative: 6 systems reviewed and unremarkable except what is marked below. Cardiovascular Cardiovascular: Reports as per HPI, Denies chest pain, Denies syncope, Denies rapid heart rate, Denies leg edema, Reports lightheadedness and Denies dyspnea Respiratory Respiratory: Denies dyspnea Neurologic Neurologic: Denies syncope PFSH All Active Problems Adverse drug reaction (Acute) Hypotension due to drugs (Acute) Bladder wall thickening (Acute) Dysphagia (Acute) Ulcerative colitis (Chronic) Deviated nasal septum (Acute 07/29/17) Essential hypertension (Acute) good BPs at home Hypertrophy of nasal turbinates (Acute 07/29/17) Injury of left Achilles tendon (Acute 10/31/17) Nasal congestion (Acute 07/29/17) Osteoarthritis (Acute) C-spine; and L6-7 narrowing/radiculopathy Trochanteric bursitis (Acute 03/25/17) Status post vasectomy (Acute) History of appendectomy (Acute) Knee pain, right anterior (Acute) Patellofemoral arthritis of right knee (Acute ~04/2019) Cervical disc disease (Acute) Viral illness (Acute) Tick bite (Acute) Medical History Chondromalacia patellae, right knee (~03/2019) GERD (gastroesophageal reflux disease) Hypertension Surgical History Appendectomy Cholecystectomy Injury of finger Vasectomy Social History Smoking/Tobacco Use Status: Current every day Tobacco Type: smokeless tobacco Smoking risk assessment performed?: Yes Alcohol Intake: current Alcohol Intake frequency: a few times a month Alcohol type: beer Drug use: Never Substance use type: marijuana Current gender identity: male Do you feel safe at home: Yes Do you feel safe in your relationship?: Yes Exam Const General: cooperative, healthy appearing, comfortable, no acute distress, not diaphoretic and not ill appearing Nutritional Appearance: average body habitus Orientation: alert, awake and oriented x3 Limitations: mental status not altered Neck Neck: normal visual inspection, full ROM, trachea midline, supple and no anterior neck swelling Carotids: normal carotid upstroke and no bruits Resp Effort & Inspection: normal respiratory effort and able to speak in complete sentences Auscultation: clear to auscultation bilaterally Cardio Jugular venous pressure: no JVD Palpation: normal PMI Rate: regular rate Rhythm: regular rhythm Heart Sounds: S1 normal, S2 normal, no click, no gallops, no murmurs and no rubs Bruits: no abdominal aortic bruits and no carotid bruits Pulses: radial pulses present bilaterally 2+ Skin General skin exam: no rashes or lesions noted Neuro General: patient alert, patient awake, patient oriented x3, tone normal and moves all extremities Course Vital Signs Vital signs: Vital Signs Temperature 36.4 C L 07/10/22 13:10 Pulse 90 07/10/22 13:10 Respiratory Rate 18 07/10/22 13:10 Blood Pressure 115/86 07/10/22 13:10 Pulse Oximetry 98 07/10/22 13:10 Temperature 36.9 C 07/10/22 14:29 Pulse 87 07/10/22 14:29 Pulse Rhythm Regular 07/10/22 14:12 Pulse Strength Normal 07/10/22 14:12 Respiratory Rate 18 07/10/22 14:31 Respiratory Effort Normal, Non-Labored 07/10/22 14:31 Respiratory Depth Normal 07/10/22 14:31 Respiratory Pattern Normal 07/10/22 14:31 Blood Pressure 101/71 07/10/22 14:29 Blood Pressure Mean 93 07/10/22 14:12 Blood Pressure Position Sitting 07/10/22 14:12 Pulse Oximetry 97 07/10/22 14:29 Oxygen Delivery Method Room Air 07/10/22 14:29 Oxygen Flow Rate 0 07/10/22 14:29 Pain Level 0 07/10/22 14:29 Comment f/u 93/68 07/10/22 13:10
[2022-07-10 14:52] VITALS: BP 101/70; PULSE 78; RESP 18; TEMP 37.1; O2SAT 96
== END 2022-07-10 17:51 | disposition home or self-care (01) ==
PROVIDERS: Emergency Provider Nurse Practitioner Family; PCP Family Medicine
DX: T46.1X5A Adverse effect of calcium-channel blockers, initial encounter (principal); I95.2 Hypotension due to drugs
CPT/HCPCS: 99281; 99282

== ENCOUNTER 2023-07-01 01:03 | Emergency (ER) | payer OTHER, SELFPAY ==
[2023-07-01] VITALS (29 sets, daily range): BP systolic 113–140; BP diastolic 70–97; PULSE 61–76; RESP 11–26; TEMP 35.8; O2SAT 90–100
--- NOTE | 2023-07-01 01:00 | RT.EKG_ITS ---
APPROVED REPORT Exam: Resting ECG Reason for Exam: hypotension Patient Location: E HR:67 bpm ECG Measurements Heart Rate 67 AXIS WV 165 P 33 QRSd 110 QRS 19 QT 472 T 11 QTc 498 Conclusion Sinus rhythm.. V-rate 60- [address] segment or t wave abnormalities to suggest occlusive NE
[2023-07-01 01:17] LABS: Absolute Basophil Count 0.09 10^3/uL (0.0-0.2); Absolute Eosinophil Count 0.04 10^3/uL (0.0-0.7); Basophils % 0.7; Eosinophils % 0.3; HCT 43.3 % (40.0-50.0); HGB 15.2 g/dL (13.5-17.5); Immature Grans % 0.8; Lymphocytes % 18.4; MCH 28.5 pg (27.0-33.0); MCHC 35.1 % (32.0-36.0); MCV 81 fL (80-95); MPV 8.5 fL (8.0-11.0); Monocytes % 5.5; Neutrophils % 74.3; Platelet Count 344 10^3/uL (130-400); RBC 5.33 10^6/uL (4.36-5.78); RDW 12.7 % (11.8-14.1); WBC 12.47 10^3/uL (4.4-10.8)
[2023-07-01 01:18] LABS: BE (Venous) 1 mmol/L (-2-3); HCO3 (Venous) 25 mmol/L (23-28); Lactate 3.2 mmol/L (0.6-1.4); O2 Sat (Venous) 57 %; TCO2 (Venous) 22 mmol/L (24-29); pCO2 (Venous) 35 mmHg (41-51); pH (Venous) 7.46 (7.31-7.41); pO2 (Venous) 28 mmHg
[2023-07-01 01:19] LABS: Absolute Lymphocyte Count 2.29 10^3/uL (1.2-3.4); Absolute Monocyte Count 0.69 10^3/uL (0.1-0.8); Absolute Neutrophil Count 9.27 10^3/uL (1.2-6.7)
[2023-07-01] MEDS: Ketorolac 15 MG/ML VIAL IVP (01:23)
[2023-07-01] MEDS: Normal Saline 1,000 ML 1000 ML IV ×3 (01:23→02:21)
[2023-07-01] MEDS: Lidocaine 5% Patch 1 PATCH TP (01:23)
[2023-07-01 01:43] LABS: ETHANOL BLOOD 131.5 mg/dL (<10)
[2023-07-01 01:46] LABS: ALT 43 U/L (16-63); AST 35 U/L (15-37); Albumin 3.8 g/dL (3.4-5.0); Alkaline Phosphatase 61 U/L (46-116); Anion Gap 13.5 mmol/L (3-11); BUN 17 mg/dL (7-18); Bilirubin, Total 0.5 mg/dL (0.2-1.0); CO2 24.5 mmol/L (21.0-32.0); CREATININE 1.4 mg/dL (0.70-1.30); Calcium 8.8 mg/dL (8.5-10.1); Chloride 103 mmol/L (98-107); Estimated GFR 58.26 (mL/min/1.73m2); Glucose 111 mg/dL (74-106); Potassium 3.4 mmol/L (3.5-5.1); Sodium 141 mmol/L (136-145); Total Protein 7.1 g/dL (6.4-8.2)
[2023-07-01 01:51] LABS: Acetaminophen 5 ug/mL (10-30); Salicylate < 2.8 mg/dL (<2.8)
--- NOTE | 2023-07-01 02:00 | DI.CT_ITS ---
Exam(s) CT BRAIN NECK CTA EXAM: CT BRAIN NECK CTA CLINICAL HISTORY: loss of conciousness, normal neuro exam. TECHNIQUE: Imaging Protocol: Axial CT angiography was performed with multi-slice acquisition and mu lti-planar and/or 3D reconstructions. CONTRAST MATERIAL: Intravenous: Omnipaque 350 Contrast volume:structured data in ml COMPARISON: CT CT ABDOMEN PELVIS W from 03/09/2022 FINDINGS: CTA Neck W: Accurate assessment of the arteries in the neck possible as there is inadequate opacification of the targeted arteries in the neck. CTA Brain W: Also suboptimal assessment. The intracranial vasculature is assessed from delayed image s. Anterior circulation: Both internal carotid arteries are patent in the skull base-carotid canals as well as within the cave rnous sinuses. The supraclinoid aspects of the ICAs are patent. Both A1 segments are patent as are the anterior cer ebral arteries and there is no evidence of obvious aneurysm at the level of the anterior communicatin g artery. Both middle cerebral arteries are patent with no evidence of obvious significant stenosis nor intralu nathan thrombus. There also no obvious aneurysms of these vessels. Posterior circulation: The basilar artery ascends in the midline. Distally it gives off patent bilateral superior cerebella r arteries. Above this level the basilar artery terminates as patent left posterior cerebral arteries. The right posterior cerebral artery is supplied by posterior communicating artery on the right side o f the [id number]. There is no evidence of obvious aneurysm at the tip of the basilar artery nor elsewhere in the [place]. CT BRAIN: There is no evidence of intracranial hemorrhage, mass effect, or shift of midline structures. There are no extra-axial fluid collections. Ventricles are not enlarged or shifted. There are no ring enh ancing lesions in the brain and no abnormal meningeal enhancement. IMPRESSION: 1. Arteries in the neck are inadequately assessed on this study due to poor contrast opacification. 2. No obvious arterial occlusion in the brain 3. No evidence of intracranial hemorrhage nor ring-enhancing lesions. RADIATION DOSE DELIVERED: Total DLP DATA REPOSITORY: All CT scans at this facility are submitted to the National Radiology Data Registry (NRDR) Dose Index Registry (DIR) with the [employer] ([employer]). RADIATION OPTIMIZATION: All CT scans at this facility use at least one of these dose optimization te chniques: automated exposure control; mA and/or kV adjustment per patient size (includes targeted exa ms where dose is matched to clinical indication); or iterative reconstruction.
[2023-07-01 02:09] LABS: Lactate 2.7 mmol/L (0.6-1.4)
[2023-07-01] MEDS: Omnipaque 350 MG/ML 100 ML BTL IJ (02:40)
[2023-07-01] MEDS: Normal Saline - Diluent 50 ML VIAL IJ (02:40)
[2023-07-01] MEDS: Normal Saline Flush 10 ML SYR IVP (02:41)
[2023-07-01 02:50] LABS: Bilirubin Negative (Negative); Blood Negative (Negative); Clarity Clear (Clear); Glucose Negative (Negative); Ketones Negative (Negative); Leukocyte Esterase Negative (Negative); Nitrite Negative (Negative); Urobilinogen 0.2 mg/dL (Up to 0.2); pH 6.5 (5-8)
[2023-07-01 03:00] LABS: *AMPHETAMINES SCREEN URINE Negative (Negative); *BARBITURATES SCREEN URINE Negative (Negative); *BENZODIAZEPINES SCREEN URINE Negative (Negative); Cannabinoids THC Negative (Negative); Cocaine Screen,Urine Negative (Negative); METHADONE URINE SCREEN Negative (Negative); OPIATES URINE SCREEN Negative (Negative)
[2023-07-01 03:01] LABS: Tricyclic Antidepressants Negative (Negative)
[2023-07-01 03:19] LABS: Lactate 2.3 mmol/L (0.6-1.4)
--- NOTE | 2023-07-01 03:40 | ED.GENADUL_ITS ---
Discharge Plan Disposition Patient Disposition: Home Condition: Good Discharge Details Clinical Impression: Alcohol intoxication Primary Care Provider: Ronen Quintero ED Provider: Paige Hawkins Home Meds and New Rx's Prescriptions: Continued omeprazole 20 mg capsule,delayed release(DR/EC) 20 mg PO DAILY PRN (Reason: acid reflux) Qty: 90 3RF Rx Instructions: buys OTC hydrochlorothiazide 12.5 mg tablet 12.5 mg PO DAILY Qty: 90 3RF amlodipine 5 mg tablet 5 mg PO DAILY Qty: 90 3RF lisinopril 20 mg tablet 40 mg PO DAILY Qty: 180 3RF acetaminophen [Tylenol] 325 MG tablet 325 mg PO Q8H PRN PRN ibuprofen 600 MG tablet 600 mg PO Q6H PRN (Reason: Pain) Qty: 15 0RF Discharge Instructions Instructions: Alcohol Intoxication (ED) Additional Instructions: Please do not drink to excess; this likely caused your memory loss and difficulty staying consciousness this evening. Call your primary care doctor today to schedule an appointment within one week to follow up on your visit here. Mention that you have a small (3.7) ascending aortic aneurysm as they will likely want to repeat imaging of this to make sure it is not getting bigger. Return to the emergency department for new or worsening symptoms especially if you have these symptoms when you have not consumed any alcohol, if you pass out, if you have chest pain or trouble breathing, if you have numbness or weakness, or if you have any other concerns. Referrals: Ronen Quintero MD [Primary Care Provider] - [facility] General Mode of arrival: EMS . Date/Time Provider Initiated Documentation: 07/01/23 01:08 . Limitations to Documentation: no limitations . Information obtained by: patient and EMS . HPI Narrative: 57yo M with hx HTN presenting via EMS after his called 911 as he was 'in and out of consciousness and sometimes not breathing'. Patient reports going out bowling with this afternoon, drank ~6 beers between 1:30 in the afternoon and 9:30 at night; does not recall anything after 9:30pm until he was in the ambulance. While in the ambulance he developed left low back spasms which is not unsual for him; was given 1g of tylenol and 4mg zofran from EMS. EMS reports blood glucose 120 on their arrival, normal vital signs, no apnea. Patient denies any other ingestions aside from ETOH, but does not recall events from 930pm on. Has never had anything like this happen before. No history of ETOH withdrawal, reports not drinking daily just 1-2 times a week. No chest pain or shortness of breath at any point. No falls. No nausea, vomiting, diarrhea, or abdominal pain. No dysuria or hematuria. No numbness, tingling, weakness, headache, or visual changes. He is otherwise in his usual state of health with no fevers, chills, rash, or other concerns. Related Data Home Medications Medication Instructions Recorded Confirmed acetaminophen 325 mg tablet 325 mg PO Q8H PRN PRN 06/02/16 07/01/23 (Tylenol) ibuprofen 600 mg tablet 600 mg PO Q6H PRN Pain #15 tabs 03/25/17 07/01/23 omeprazole 20 mg capsule,delayed 20 mg PO DAILY PRN acid reflux #90 12/25/20 07/01/23 release caps amlodipine 5 mg tablet 5 mg PO DAILY #90 tabs 09/17/22 07/01/23 lisinopril 20 mg tablet 40 mg (2 x 20 mg) PO DAILY #180 09/22/22 07/01/23 tabs hydrochlorothiazide 12.5 mg tablet 12.5 mg PO DAILY #90 tab-caps 10/08/22 07/01/23 Previous Rx's Medication Instructions Recorded ibuprofen 600 mg tablet 600 mg PO Q6H PRN Pain #15 tabs 03/25/17 omeprazole 20 mg capsule,delayed 20 mg PO DAILY PRN acid reflux #90 12/25/20 release caps amlodipine 5 mg tablet 5 mg PO DAILY #90 tabs 09/17/22 lisinopril 20 mg tablet 40 mg (2 x 20 mg) PO DAILY #180 09/22/22 tabs hydrochlorothiazide 12.5 mg tablet 12.5 mg PO DAILY #90 tab-caps 10/08/22 Allergies Allergy/AdvReac Type Severity Reaction Status Date / Time diphenhydramine AdvReac Intermediate HEARTBURN Verified 07/01/23 01:16 morphine AdvReac Intermediate vomiting Verified 07/01/23 01:16 zinc [Zinc] AdvReac Intermediate HEARTBURN Verified 07/01/23 01:16 General Stated Complaint: Nk/Back Pain JUAN: 3 Review of Systems Narrative: see HPI Exam Narrative Exam Narrative: General: Alert, in no acute distress. ETOH odour present. Head: Normocephalic, atraumatic Neck: Trachea midline, ?Neck supple. ENT: ?MMM.? Cardiac: ?RRR, no murmurs appreciated Resp: No respiratory distress. CTAB. Abd: ?Soft, non-distended, nontender : ?No suprapubic tenderness. Extremities: ?No deformities.? No peripheral edema. Neuro: ? GCS 15.? PERRL; pinpoint.? EOMI.? Fluent speech, no dysarthria. Motor- 5/5 strength symmetric bilateral upper and lower extremities Sensation- ?Intact to light touch and symmetric multiple dermatomes including upper and lower extremities Coordination- No dysmetria on finger to nose CRANIAL NERVES: II: Pupils equal and reactive, pinpoint III, IV, : EOM intact, no gaze preference or deviation, no nystagmus. V: normal sensation in V1, V2, and V3 segments bilaterally VII: no asymmetry, no nasolabial fold flattening VIII: normal hearing to speech IX, X: normal palatal elevation, no uvular deviation XI: 5/5 head turn and 5/5 shoulder shrug bilaterally XII: midline tongue protrusion Course Vital Signs Vital signs: Vital Signs Temperature 35.8 C L 07/01/23 01:02 Pulse 68 07/01/23 01:02 Respiratory Rate 16 07/01/23 01:02 Blood Pressure 126/89 07/01/23 01:02 Pulse Oximetry 96 07/01/23 01:02 Temperature 35.8 C L 07/01/23 01:02 Pulse 66 07/01/23 02:00 Pulse 66 07/01/23 03:10 Respiratory Rate 18 07/01/23 03:10 Respiratory Effort Normal 07/01/23 01:10 Blood Pressure 140/97 H 07/01/23 02:00 Blood Pressure Mean 110 07/01/23 02:00 Pulse Oximetry 98 07/01/23 03:10 Respiratory End-tidal CO2 39 07/01/23 02:10 Oxygen Delivery Method Room Air 07/01/23 01:02 Oxygen Flow Rate 0 07/01/23 01:02 Lab/Test Results Lab/Test Results: Laboratory Tests Range/Units 07/01/23 07/01/23 07/01/23 00:10 02:00 02:40 WBC (4.4-10.8) 10^3/uL 12.47 H RBC (4.36-5.78) 10^6/uL 5.33 Hgb (13.5-17.5) g/dL 15.2 Hct (40.0-50.0) % 43.3 MCV (80-95) fL 81 MCH (27.0-33.0) pg 28.5 MCHC (32.0-36.0) % 35.1 RDW (11.8-14.1) % 12.7 Plt Count (130-400) 10^3/uL 344 MPV (8.0-11.0) fL 8.5 Immature Gran % 0.8 Neutrophils % 74.3 Lymphocytes % 18.4 Monocytes % 5.5 Eosinophils % 0.3 Basophils % 0.7 Nucleated RBC % (0.0-0.3) % 0.0 Absolute Neutrophils (1.2-6.7) 10^3/uL 9.27 H Absolute Lymphocytes (1.2-3.4) 10^3/uL 2.29 Absolute Monocytes (0.1-0.8) 10^3/uL 0.69 Absolute Eosinophils (0.0-0.7) 10^3/uL 0.04 Absolute Basophils (0.0-0.2) 10^3/uL 0.09 VBG pH (7.31-7.41) 7.46 H VBG pCO2 (41-51) mmHg 35 L VBG pO2 mmHg 28 VBG HCO3 (23-28) mmol/L 25 VBG Total CO2 (24-29) mmol/L 22 L VBG O2 Saturation % 57 VBG Base Excess (-2-3) mmol/L 1 VBG Lactate (0.6-1.4) mmol/L 3.2 H* 2.7 H* Sodium (136-145) mmol/L 141 Potassium (3.5-5.1) mmol/L 3.4 L Chloride (98-107) mmol/L 103 Carbon Dioxide (21.0-32.0) mmol/L 24.5 Anion Gap (3-11) mmol/L 13.5 H BUN (7-18) mg/dL 17 Creatinine (0.70-1.30) mg/dL 1.4 H Est GFR (CKD-EPI 2020) (mL/min/1.73m2) 58.26 Glucose (74-106) mg/dL 111 H Calcium (8.5-10.1) mg/dL 8.8 Total Bilirubin (0.2-1.0) mg/dL 0.5 AST (15-37) U/L 35 ALT (16-63) U/L 43 Alkaline Phosphatase (46-116) U/L 61 Total Protein (6.4-8.2) g/dL 7.1 Albumin (3.4-5.0) g/dL 3.8 Urine Color (Yellow) Yellow Urine Clarity (Clear) Clear Urine pH (5-8) 6.5 Ur Specific Vanderbilt (1.005-1.025) 1.010 Urine Protein (Neg-Trace) mg/dL Negative Urine Ketones (Negative) mg/dL Negative Urine Blood (Negative) Negative Urine Nitrite (Negative) Negative Urine Bilirubin (Negative) Negative Urine Urobilinogen (Up to 0.2) mg/dL 0.2 Ur Leukocyte Esterase (Negative) Negative Urine Glucose (Negative) mg/dL Negative Salicylates (<2.8) mg/dL < 2.8 Urine Opiates Screen (Negative) Negative Urine Methadone Screen (Negative) Negative Acetaminophen (10-30) ug/mL 5 Ur Barbiturates Screen (Negative) Negative Ur Tricyclics Screen (Negative) Negative Ur Amphetamines Screen (Negative) Negative U Benzodiazepines Scrn (Negative) Negative Urine Cocaine Screen (Negative) Negative Ur THC Screen (Negative) Negative Ethyl Alcohol (<10) mg/dL 131.5 H Range/Units 07/01/23 03:15 WBC (4.4-10.8) 10^3/uL RBC (4.36-5.78) 10^6/uL Hgb (13.5-17.5) g/dL Hct (40.0-50.0) % MCV (80-95) fL MCH (27.0-33.0) pg MCHC (32.0-36.0) % RDW (11.8-14.1) % Plt Count (130-400) 10^3/uL MPV (8.0-11.0) fL Immature Gran % Neutrophils % Lymphocytes % Monocytes % Eosinophils % Basophils % Nucleated RBC % (0.0-0.3) % Absolute Neutrophils (1.2-6.7) 10^3/uL Absolute Lymphocytes (1.2-3.4) 10^3/uL Absolute Monocytes (0.1-0.8) 10^3/uL Absolute Eosinophils (0.0-0.7) 10^3/uL Absolute Basophils (0.0-0.2) 10^3/uL VBG pH (7.31-7.41) VBG pCO2 (41-51) mmHg VBG pO2 mmHg VBG HCO3 (23-28) mmol/L VBG Total CO2 (24-29) mmol/L VBG O2 Saturation % VBG Base Excess (-2-3) mmol/L VBG Lactate (0.6-1.4) mmol/L 2.3 H* Sodium (136-145) mmol/L Potassium (3.5-5.1) mmol/L Chloride (98-107) mmol/L Carbon Dioxide (21.0-32.0) mmol/L Anion Gap (3-11) mmol/L BUN (7-18) mg/dL Creatinine (0.70-1.30) mg/dL Est GFR (CKD-EPI 2020) (mL/min/1.73m2) Glucose (74-106) mg/dL Calcium (8.5-10.1) mg/dL Total Bilirubin (0.2-1.0) mg/dL AST (15-37) U/L ALT (16-63) U/L Alkaline Phosphatase (46-116) U/L Total Protein (6.4-8.2) g/dL Albumin (3.4-5.0) g/dL Urine Color (Yellow) Urine Clarity (Clear) Urine pH (5-8) Ur Specific Vanderbilt (1.005-1.025) Urine Protein (Neg-Trace) mg/dL Urine Ketones (Negative) mg/dL Urine Blood (Negative) Urine Nitrite (Negative) Urine Bilirubin (Negative) Urine Urobilinogen (Up to 0.2) mg/dL Ur Leukocyte Esterase (Negative) Urine Glucose (Negative) mg/dL Salicylates (<2.8) mg/dL Urine Opiates Screen (Negative) Urine Methadone Screen (Negative) Acetaminophen (10-30) ug/mL Ur Barbiturates Screen (Negative) Ur Tricyclics Screen (Negative) Ur Amphetamines Screen (Negative) U Benzodiazepines Scrn (Negative) Urine Cocaine Screen (Negative) Ur THC Screen (Negative) Ethyl Alcohol (<10) mg/dL Medical Decision Making 57yo M with hx HTN presenting via EMS after his called 911 as he was 'in and out of consciousness and sometimes not breathing'. Patient reports going out bowling with this afternoon, drank ~6 beers between 1:30 in the afternoon and 9:30 at night; does not recall anything after 9:30pm until he was in the ambulance. While in the ambulance he developed left low back spasms which is not unsual for him; was given 1g of tylenol and 4mg zofran from EMS. No report of trauma. Reassuring vital signs on arrival, good end tidal CO2 and respiratory effort, no apnea. Pinpoint pupils, otherwise normal neurologic exam, GCS 15. Benign physical exam. Clinically intoxicated. EKG on arrival with appropriate intervals, no ST segment or T wave abnormalities to suggest occlusive OR. No chest pain or shortness of breath at any point to suggest acute coronary syndromes or pulmonary embolism. Suspect ETOH intoxication +/-other ingestions based on exam (transient global amnesia also possible though less likely); will evaluate for other causes with labs, CT head. Given toradol and lidocaine patch for back pain. Labs reviewed as below, CBC reassuring with no anemia, mild leukocytosis, CMP with Cr 1.4 (baseline on [facility] record review), mildly elevated anion gap at 13.5, no actionable electrolyte abnormalities. VBG with respiratory alkalosis ph 7.46 inconsistent with reported apnea. ETOH 131, serum and utox otherwise negative. UA not infected. Initial lactate 3.2 (suspect 2/t to ETOH; downtrended 2.7, 2.3). CTA brain and neck independently reviewed, no large bleed or mass on my view, agree with radiology read below with no acute findings. On reassessment back pain completely resolved, reassuring vital signs, physical and neurologic exam remain benign. Able to ambulate steadily. Patient's now at bedside, reports that when he came home at ~10pm he appeared to 'more tipsy than I have ever seen him'. Overnight he continued to appear intoxicated and then began having episodes where he looked like he was going to vomit and then breathe rapidly and fall asleep, she was only able to wake him with difficulty. Given reassuring workup here, suspect most likely severe ETOH intoxication. Patient and request discharge home which is reasonable. Advised of incidental aortic aneurysm and instructed to followup with PCP. Discharged home; discharge instructions and return precautions were reviewed with patient and who verbalized understanding. All questions were answered and he is in full agreement with the plan. Imaging Data Radiologic Study: Imaging: CT Scan Radiologist's impression: IMPRESSION: Ethmoid and left maxillary sinusitis. IMPRESSION: No hemodynamically significant stenosis or obvious occlusion. Assessment of the vasculature is somewhat limited by suboptimal contrast. No acute intracranial process. 3.7 cm ascending aortic aneurysm. Paranasal sinusitis. Lab Data Lab results reviewed: Yes I reviewed the patient's lab results. Labs: Laboratory Tests Range/Units 07/01/23 07/01/23 07/01/23 00:10 02:00 02:40 WBC (4.4-10.8) 10^3/uL 12.47 H RBC (4.36-5.78) 10^6/uL 5.33 Hgb (13.5-17.5) g/dL 15.2 Hct (40.0-50.0) % 43.3 MCV (80-95) fL 81 MCH (27.0-33.0) pg 28.5 MCHC (32.0-36.0) % 35.1 RDW (11.8-14.1) % 12.7 Plt Count (130-400) 10^3/uL 344 MPV (8.0-11.0) fL 8.5 Immature Gran % 0.8 Neutrophils % 74.3 Lymphocytes % 18.4 Monocytes % 5.5 Eosinophils % 0.3 Basophils % 0.7 Nucleated RBC % (0.0-0.3) % 0.0 Absolute Neutrophils (1.2-6.7) 10^3/uL 9.27 H Absolute Lymphocytes (1.2-3.4) 10^3/uL 2.29 Absolute Monocytes (0.1-0.8) 10^3/uL 0.69 Absolute Eosinophils (0.0-0.7) 10^3/uL 0.04 Absolute Basophils (0.0-0.2) 10^3/uL 0.09 VBG pH (7.31-7.41) 7.46 H VBG pCO2 (41-51) mmHg 35 L VBG pO2 mmHg 28 VBG HCO3 (23-28) mmol/L 25 VBG Total CO2 (24-29) mmol/L 22 L VBG O2 Saturation % 57 VBG Base Excess (-2-3) mmol/L 1 VBG Lactate (0.6-1.4) mmol/L 3.2 H* 2.7 H* Sodium (136-145) mmol/L 141 Potassium (3.5-5.1) mmol/L 3.4 L Chloride (98-107) mmol/L 103 Carbon Dioxide (21.0-32.0) mmol/L 24.5 Anion Gap (3-11) mmol/L 13.5 H BUN (7-18) mg/dL 17 Creatinine (0.70-1.30) mg/dL 1.4 H Est GFR (CKD-EPI 2020) (mL/min/1.73m2) 58.26 Glucose (74-106) mg/dL 111 H Calcium (8.5-10.1) mg/dL 8.8 Total Bilirubin (0.2-1.0) mg/dL 0.5 AST (15-37) U/L 35 ALT (16-63) U/L 43 Alkaline Phosphatase (46-116) U/L 61 Total Protein (6.4-8.2) g/dL 7.1 Albumin (3.4-5.0) g/dL 3.8 Urine Color (Yellow) Yellow Urine Clarity (Clear) Clear Urine pH (5-8) 6.5 Ur Specific Vanderbilt (1.005-1.025) 1.010 Urine Protein (Neg-Trace) mg/dL Negative Urine Ketones (Negative) mg/dL Negative Urine Blood (Negative) Negative Urine Nitrite (Negative) Negative Urine Bilirubin (Negative) Negative Urine Urobilinogen (Up to 0.2) mg/dL 0.2 Ur Leukocyte Esterase (Negative) Negative Urine Glucose (Negative) mg/dL Negative Salicylates (<2.8) mg/dL < 2.8 Urine Opiates Screen (Negative) Negative Urine Methadone Screen (Negative) Negative Acetaminophen (10-30) ug/mL 5 Ur Barbiturates Screen (Negative) Negative Ur Tricyclics Screen (Negative) Negative Ur Amphetamines Screen (Negative) Negative U Benzodiazepines Scrn (Negative) Negative Urine Cocaine Screen (Negative) Negative Ur THC Screen (Negative) Negative Ethyl Alcohol (<10) mg/dL 131.5 H Range/Units 07/01/23 03:15 WBC (4.4-10.8) 10^3/uL RBC (4.36-5.78) 10^6/uL Hgb (13.5-17.5) g/dL Hct (40.0-50.0) % MCV (80-95) fL MCH (27.0-33.0) pg MCHC (32.0-36.0) % RDW (11.8-14.1) % Plt Count (130-400) 10^3/uL MPV (8.0-11.0) fL Immature Gran % Neutrophils % Lymphocytes % Monocytes % Eosinophils % Basophils % Nucleated RBC % (0.0-0.3) % Absolute Neutrophils (1.2-6.7) 10^3/uL Absolute Lymphocytes (1.2-3.4) 10^3/uL Absolute Monocytes (0.1-0.8) 10^3/uL Absolute Eosinophils (0.0-0.7) 10^3/uL Absolute Basophils (0.0-0.2) 10^3/uL VBG pH (7.31-7.41) VBG pCO2 (41-51) mmHg VBG pO2 mmHg VBG HCO3 (23-28) mmol/L VBG Total CO2 (24-29) mmol/L VBG O2 Saturation % VBG Base Excess (-2-3) mmol/L VBG Lactate (0.6-1.4) mmol/L 2.3 H* Sodium (136-145) mmol/L Potassium (3.5-5.1) mmol/L Chloride (98-107) mmol/L Carbon Dioxide (21.0-32.0) mmol/L Anion Gap (3-11) mmol/L BUN (7-18) mg/dL Creatinine (0.70-1.30) mg/dL Est GFR (CKD-EPI 2020) (mL/min/1.73m2) Glucose (74-106) mg/dL Calcium (8.5-10.1) mg/dL Total Bilirubin (0.2-1.0) mg/dL AST (15-37) U/L ALT (16-63) U/L Alkaline Phosphatase (46-116) U/L Total Protein (6.4-8.2) g/dL Albumin (3.4-5.0) g/dL Urine Color (Yellow) Urine Clarity (Clear) Urine pH (5-8) Ur Specific Vanderbilt (1.005-1.025) Urine Protein (Neg-Trace) mg/dL Urine Ketones (Negative) mg/dL Urine Blood (Negative) Urine Nitrite (Negative) Urine Bilirubin (Negative) Urine Urobilinogen (Up to 0.2) mg/dL Ur Leukocyte Esterase (Negative) Urine Glucose (Negative) mg/dL Salicylates (<2.8) mg/dL Urine Opiates Screen (Negative) Urine Methadone Screen (Negative) Acetaminophen (10-30) ug/mL Ur Barbiturates Screen (Negative) Ur Tricyclics Screen (Negative) Ur Amphetamines Screen (Negative) U Benzodiazepines Scrn (Negative) Urine Cocaine Screen (Negative) Ur THC Screen (Negative) Ethyl Alcohol (<10) mg/dL Quality:SDOH Health Related Social Needs: No Data to Display PFSH All Active Problems (Updated 07/01/23 @ 04:36 by Paige Hawkins MD) Alcohol intoxication (Acute) Low blood pressure (Acute) Bladder wall thickening (Acute) Dysphagia (Acute) Ulcerative colitis (Chronic) Deviated nasal septum (Acute 07/29/17) Essential hypertension (Acute) good BPs at home Hypertrophy of nasal turbinates (Acute 07/29/17) Injury of left Achilles tendon (Acute 10/31/17) Nasal congestion (Acute 07/29/17) Osteoarthritis (Acute) C-spine; and L6-7 narrowing/radiculopathy Trochanteric bursitis (Acute 03/25/17) Status post vasectomy (Acute) History of appendectomy (Acute) Knee pain, right anterior (Acute) Patellofemoral arthritis of right knee (Acute ~04/2019) Cervical disc disease (Acute) Viral illness (Acute) Tick bite (Acute) Medical History Chondromalacia patellae, right knee (~03/2019) GERD (gastroesophageal reflux disease) Hypertension Surgical History Appendectomy Cholecystectomy Injury of finger Vasectomy Social History Smoking/Tobacco Use Status: Current every day Tobacco Type: smokeless tobacco Smoking risk assessment performed?: Yes Alcohol Intake: current Alcohol Intake frequency: a few times a month Alcohol type: beer Drug use: Never Substance use type: marijuana Current gender identity: male Do you feel safe at home: Yes Do you feel safe in your relationship?: Yes PAWSS Have you Been Recently Intoxicated or Drunk Within the Last 30 days?: No Have you Ever Experienced Previous Episodes of Alcohol Withdrawal?: No Have you ever Experienced Withdrawal Seizures?: No Have you ever Experienced Delirium Tremens(DT)s?: No Have you ever undergone Alcohol Rehabilitation Treatment (i.e, inpt ot outpatient treatment programs)?: No Have you ever Experienced Blackouts?: No Have you ever Combined Alcohol with other Downers within the last 90 days?: No Have you ever Combined Alcohol with any other Substance of Abuse during the last 90 days?: No Positive Blood Alcohol level on Presentation? [PCS.BAL]: Yes Evidence of Increased Autonomic Activity (i.e. HR>120, tremor, sweating, agitation, nausea)?: No Result: 1
--- NOTE | 2023-07-01 04:25 | DI.VRAD_ITS ---
PROCEDURE INFORMATION: Exam: CTA Head With Contrast, Arteriography Exam date and time: 07/01/2023 2:19 AM Age: 57 years old Clinical indication: Other: Loss of conciousness, normal neuro exam TECHNIQUE: Imaging protocol: Computed tomographic angiography of the head with contrast. Exam focused on the arteries. 3D rendering (Not supervised by radiologist): MIP and/or 3D reconstructed images were created by the technologist. Contrast material: OMNI 350; Contrast volume: 100 ml; Contrast route: INTRAVENOUS (IV); COMPARISON: MR CERVICAL SPINE WO 08/23/2019 11:20 AM FINDINGS: ANTERIOR CIRCULATION: Right internal carotid artery: Intracranial segment is patent with no significant stenosis. No aneurysm. Right middle cerebral artery: No occlusion or significant stenosis. No aneurysm. Right anterior cerebral artery: No occlusion or significant stenosis. No aneurysm. Left internal carotid artery: Intracranial segment is patent with no significant stenosis. No aneurysm. Left middle cerebral artery: No occlusion or significant stenosis. No aneurysm. Left anterior cerebral artery: No occlusion or significant stenosis. No aneurysm. POSTERIOR CIRCULATION: Right vertebral artery: No occlusion or significant stenosis. No aneurysm. Left vertebral artery: No occlusion or significant stenosis. No aneurysm. Basilar artery: No occlusion or significant stenosis. No aneurysm. Right posterior cerebral artery: No occlusion or significant stenosis. No aneurysm. Left posterior cerebral artery: No occlusion or significant stenosis. No aneurysm. Brain: No mass effect, hemorrhage or extra-axial collection seen. No abnormal intracranial enhancement. Cerebral ventricles: No ventriculomegaly. Paranasal sinuses: Mucosal thickening in the ethmoid sinuses. There is near complete opacification of the left mastoid maxillary sinus. Bones/joints: Unremarkable. No acute fracture. Soft tissues: Unremarkable. IMPRESSION: Ethmoid and left maxillary sinusitis. PROCEDURE INFORMATION: Exam: CTA Neck With Contrast Exam date and time: 07/01/2023 2:19 AM Age: 57 years old Clinical indication: Other: Loss of conciousness, normal neuro exam TECHNIQUE: Imaging protocol: Computed tomographic angiography of the neck with contrast. Exam focused on the cervical segments of the vasculature. 3D rendering (Not supervised by radiologist): MIP and/or 3D reconstructed images were created by the technologist. Contrast material: OMNI 350; Contrast volume: 100 ml; Contrast route: INTRAVENOUS (IV); COMPARISON: MR CERVICAL SPINE WO 08/23/2019 11:20 AM FINDINGS: Limitations: Vasculature is suboptimally opacified limiting assessment. Right common carotid artery: No stenosis. No dissection or occlusion. Right internal carotid artery: No stenosis of the extracranial segment. No dissection or occlusion. Right external carotid artery: No occlusion or stenosis of the origin. Left common carotid artery: No stenosis. No dissection or occlusion. Left internal carotid artery: No stenosis of the extracranial segment. No dissection or occlusion. Left external carotid artery: No occlusion or stenosis of the origin. Right vertebral artery: No stenosis. No dissection or occlusion. Left vertebral artery: No stenosis. No dissection or occlusion. Aorta: Ascending aorta is aneurysmal measuring 3.7 cm. Lymph nodes: Shotty adenopathy in the anterior cervical chains. Bilateral maxillary sinus mucosal thickening with near complete opacification of the left maxillary sinus. Mucosal thickening is also seen ethmoid air cells. Bones/joints: No acute fracture. IMPRESSION: No hemodynamically significant stenosis or obvious occlusion. Assessment of the vasculature is somewhat limited by suboptimal contrast. No acute intracranial process. 3.7 cm ascending aortic aneurysm. Paranasal sinusitis. REFERENCES: NASCET CRITERIA. The degree of stenosis in the cervical segment of the internal carotid artery is based on NASCET criteria. Normal is no stenosis. Mild is less than 50% stenosis. Moderate is 50-69% stenosis. Severe is 70% to 99% stenosis. Total occlusion is no detectable patent lumen. Dictated and Authenticated by: Paige Barrera MD. Ordering:GIANA Gibson MD
== END 2023-07-01 04:41 | disposition home or self-care (01) ==
LOC: ER 04:53
PROVIDERS: Emergency Provider Student in an Organized Health Care Education/Training Program; PCP Family Medicine
DX: F10.120 Alcohol abuse with intoxication, uncomplicated (principal); I10 Essential (primary) hypertension; F17.290 Nicotine dependence, other tobacco product, uncomplicated; Y90.6 Blood alcohol level of 120-199 mg/100 ml
CPT/HCPCS: 70496; 70498; 80053; 80307; 82805; 93005; 96361; 96374; 99285; 80320; 80329; 81003; 83605; 85025; 93010; 99284; J1885; J3490

== ENCOUNTER 2024-04-07 13:05 | Emergency (ER) | payer OTHER, MEDICAID, SELFPAY ==
[2024-04-07 13:08] VITALS: BP 183/119; PULSE 57; RESP 10; TEMP 36.5; O2SAT 98
--- NOTE | 2024-04-07 13:33 | ED.GENADUL_ITS ---
Discharge Plan Disposition Patient Disposition: Home Condition: Good Discharge Details Clinical Impression: Acute pain of left shoulder, Calcific tendinitis of left shoulder Primary Care Provider: Ronen Quintero ED Provider: Khurram Mcelroy Home Meds and New Rx's Prescriptions: New lidocaine [Lidoderm] 5 % adhesive patch,medicated 1 patch Topical Q24H Qty: 15 0RF No Action amlodipine 10 mg tablet 10 mg PO .qod Qty: 45 3RF hydrochlorothiazide 12.5 mg tablet 12.5 mg PO DAILY Qty: 90 3RF lisinopril 20 mg tablet 40 mg PO DAILY Qty: 180 3RF omeprazole 20 mg capsule,delayed release(DR/EC) 20 mg PO DAILY PRN (Reason: acid reflux) Qty: 90 3RF Rx Instructions: buys OTC propranolol 20 mg tablet 20 mg PO BID Qty: 180 3RF acetaminophen [Tylenol] 325 MG tablet 325 mg PO Q8H PRN PRN ibuprofen 600 MG tablet 600 mg PO Q6H PRN (Reason: Pain) Qty: 15 0RF Discharge Instructions Instructions: Calcific Tendinopathy of the Shoulder (DC) Additional Instructions: At this time the x-ray does show calcifications in your shoulder, as well as s ome mild AC joint separation. Please continue to perform the shoulder exercises we discussed to keep the shoulder limber to prevent frozen shoulder syndrome. Please apply the Voltaren gel every 6-8 hours for the next few weeks. Please take Tylenol every 6 hours for pain. The maximum doses of 1000 mg per 6 hours. Please take ibuprofen 600 mg every 6 hours as well. If you do notice any upset stomach, please stop taking the ibuprofen immediately. Please make sure to take it with food and/or Tums. Please use the Lidoderm patches as prescribed. Please follow-up with your physical therapist to help in stretching and strengthening exercises. Please follow-up closely with your primary care provider for reassessment. If symptoms do not improve over the next 2 to 3 weeks with conservative therapy you may need further evaluation by an high school library media specialist. Please avoid any activities or significant uses of the shoulder that bring about worsening pain. If you notice any worsening of your symptoms, or any new symptoms such as vomiting, diarrhea, fever, chills, shortness of breath, chest pain, numbness, weakness, or fainting , please return immediately to the emergency department f or reevaluation. Please follow up with your primary care provider as soon as possible for reassessment and reevaluation. As always, it was a pleasure participating in your medical care today. Stand Alone Forms: Physical Therapy Referral Referrals: Ronen Quintero MD [Primary Care Provider] - [facility] General Date/Time Provider Initiated Documentation: 04/07/24 13:12 . 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 He presents today for left shoulder pain. 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 About 3 days ago he noticed mild to moderate ache in his left shoulder made worse with movement and activity. He has not taken any Tylenol or Motrin for relieving treatments. He has been trying to move his arm to keep it limber, however the range of motion has been reducing as of late. He denies any previous injury to the arm. No other complaints at this time. No other modifying factors. Related Data Home Medications ?Medication ?Instructions ?Recorded ?Confirmed acetaminophen 325 mg tablet 325 mg PO Q8H PRN PRN 06/02/16 04/07/24 (Tylenol) ibuprofen 600 mg tablet 600 mg PO Q6H PRN Pain #15 tabs 03/25/17 04/07/24 amlodipine 10 mg tablet 10 mg PO .qod #45 tabs 01/27/24 04/07/24 hydrochlorothiazide 12.5 mg tablet 12.5 mg PO DAILY #90 tab-caps 03/20/24 04/07/24 lisinopril 20 mg tablet 40 mg (2 x 20 mg) PO DAILY #180 03/20/24 04/07/24 tabs omeprazole 20 mg capsule,delayed 20 mg PO DAILY PRN acid reflux #90 03/20/24 04/07/24 release caps propranolol 20 mg tablet 20 mg PO BID #180 tabs 03/28/24 04/07/24 lidocaine 5 % topical patch 1 patch topical Q24H #15 ea 04/07/24 (Lidoderm) Previous Rx's ?Medication ?Instructions ?Recorded ibuprofen 600 mg tablet 600 mg PO Q6H PRN Pain #15 tabs 03/25/17 amlodipine 10 mg tablet 10 mg PO .qod #45 tabs 01/27/24 hydrochlorothiazide 12.5 mg tablet 12.5 mg PO DAILY #90 tab-caps 03/20/24 lisinopril 20 mg tablet 40 mg (2 x 20 mg) PO DAILY #180 03/20/24 tabs omeprazole 20 mg capsule,delayed 20 mg PO DAILY PRN acid reflux #90 03/20/24 release caps propranolol 20 mg tablet 20 mg PO BID #180 tabs 03/28/24 lidocaine 5 % topical patch 1 patch topical Q24H #15 ea 04/07/24 (Lidoderm) Allergies Allergy/AdvReac Type Severity Reaction Status Date / Time diphenhydramine AdvReac Intermediate HEARTBURN Verified 04/07/24 13:11 morphine AdvReac Intermediate vomiting Verified 04/07/24 13:11 zinc (Zinc) AdvReac Intermediate HEARTBURN Verified 04/07/24 13:11 General Stated Complaint: Orthopedic JUAN: 4 Exam Narrative Exam Narrative: 1.Const: Well-nourished, Well-developed, appearing stated age 2.Eyes: PERRL, no conjunctival injection, and symmetrical lids. 3.ENT: Atraumatic external nose and ears. Moist MM. Neck: Symmetric, trachea midline, No thyromegaly. 4.CVS: +S1/S2, Peripheral pulses 2+ and equal in all extremities. Brisk capillary refill in all extremities. 5.RESP: Unlabored respiratory effort. Clear to auscultation bilaterally. No wheezes rales or rhonchi 6.GI: Soft, Nontender/Nondistended, No hepatosplenomegaly. No guarding or rebound. 7.MSK: Normocephalic/Atraumatic, left AC joint demonstrates slight atypical unilateral deformity compared to the right. No tenderness over the AC joint. It does appear to be minimally elevated. No clavicular tenderness. On palpation of the posterior aspect of the shoulder, the patient does have focal tenderness there. No other pain or tenderness throughout the palpation of the rest of the shoulder. No redness warmth or edema. Patient does have restricted range of motion for abduction, external rotation, and superior movement. No table exacerbation of pain with resistance against superior movement, abduction, posterior movement and external rotation. Significant pain is noted with the empty can test. Passive elevation from a lateral aspect of the left shoulder does not demonstrate evidence of impingement. 8.Skin: Warm, Dry. No rashes or lesions. 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 Sensation grossly intact, no focal n eurologic deficits. 10.Psych: (AAO) x3. Appropriate mood and affect Course Vital Signs Vital signs: Vital Signs Temperature 36.5 C 04/07/24 13:08 Pulse 57 L 04/07/24 13:08 Respiratory Rate 10 L 04/07/24 13:08 Blood Pressure 183/119 H 04/07/24 13:08 Pulse Oximetry 98 04/07/24 13:08 Temperature 36.5 C 04/07/24 13:08 Temperature Source Oral 04/07/24 13:08 Pulse 57 L 04/07/24 13:08 Respiratory Rate 10 L 04/07/24 13:08 Blood Pressure 183/119 H 04/07/24 13:08 Blood Pressure Position Sitting 04/07/24 13:08 Pulse Oximetry 98 04/07/24 13:08 Oxygen Delivery Method Room Air 04/07/24 13:08 Oxygen Flow Rate 0 04/07/24 13:08 Pain Level 0 04/07/24 13:08 Medical Decision Making 58-year-old male with a past medical history of hypertension, 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 He presents today for left shoulder pain. 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 About 3 days ago he noticed mild to moderate ache in his left shoulder made worse with movement and activity. He has not taken any Tylenol or Motrin for relieving treatments. He has been trying to move his arm to keep it limber, however the range of motion has been reducing as of late. He denies any previous injury to the arm. No other complaints at this time. No other modifying factors. Physical exam demonstrates left AC joint demonstrates slight atypical unilateral deformity compared to the right. No tenderness over the AC joint. It does appear to be minimally elevated. No clavicular tenderness. On palpation of the posterior aspect of the shoulder, the patient does have focal tenderness there. No other pain or tenderness throughout the palpation of the rest of the should er. No redness warmth or edema. Patient does have restricted range of motion for abduction, external rotation, and superior movement. Notable exacerbation of pain with resistance against superior movement, abduction, posterior movement and external rotation. Significant pain is noted with the empty can test. Passive elevation from a lateral aspect of the left shoulder does not demonstrate evidence of impingement. Concern for rotator cuff irritation, potential old calcific tendinitis now exacerbated from this movement causing current pain and symptomatology. There is certainly reduction in the range of motion suggesting early frozen shoulder syndrome, and at this stage I would not be surprised if there is bursal inflammation. Since the patient has not been using any NSAID therapy, we will start with Toradol IM, Tylenol, Voltaren gel and Lidoderm patch. Will get an x- ray to rule out acute osseous abnormality or AC joint disruption. No IV drug use or fever to suggest septic joint. Normal strength otherwise, with no evidence to suggest dislocation. We will monitor closely and reassess. X-ray shows evidence of slight AC joint separation, but it is nontender. There is also evidence of calcium deposits throughout the shoulder. Suspect calcific tendinitis, with exacerbation of potential bursal irritation. Otherwise no evidence of fracture or deformity. Patient feels much better after Toradol, Voltaren gel, Tylenol. Patient feels well and would like to go home. Will place physical therapy referral. Will recommend continued stretching exercises and strengthening exercises for home. Recommend avoidance of exacerbating movements. I am concerned that if the patient is placed in a sling that he will develop frozen shoulder syndrome. In addition to this, patient has refused sling, and states that he would not find this copacetic with his current work and activity. Patient will be discharged home with physical therapy and close follow-up with PCP. If patient does not have improvement after 2 weeks of conservative therapy, will potentially need orthopedic follow-up on a nonemergent outpatient basis. Additionally, recommend NSAIDs only be taken with food and Tums, and as soon as he has any epigastric discomfort he should stop taking the ibuprofen. He is on omeprazole already. I have extensively reviewed the treatment plan and discharge instructions with the patient. I have addressed all patient concerns at this time. The patient was made aware of what symptoms to monitor for that would warrant a return to the emergency department. Discussed the plan with the patient, they demonstrate verbal understanding and agreement with our assessment and plan at this time. The documentation in this chart was dictated using [employer] dictation software. Please excuse any dictation errors. Quality:SDOH Health Related Social Needs: No Data to Display PFSH All Active Problems (Updated 04/07/24 @ 14:42 by Khurram Mcelroy, ) Calcific tendinitis of left shoulder (Acute) Acute pain of left shoulder (Acute) Essential tremor (Acute) Ascending aortic aneurysm (Acute) repeat imaging due in 06/2024 Low blood pressure (Acute) Bladder wall thickening (Acute) Dysphagia (Acute) Ulcerative colitis (Chronic) Deviated nasal septum (Acute 07/29/17) Essential hypertension (Acute) good BPs at home Hypertrophy of nasal turbinates (Acute 07/29/17) Injury of left Achilles tendon (Acute 10/31/17) Nasal congestion (Acute 07/29/17) Osteoarthritis (Acute) C-spine; and L6-7 narrowing/radiculopathy Trochanteric bursitis (Acute 03/25/17) Status post vasectomy (Acute) History of appendectomy (Acute) Knee pain, right anterior (Acute) Patellofemoral arthritis of right knee (Acute ~04/2019) Cervical disc disease (Acute) Viral illness (Acute) Tick bite (Acute) Medical History Chondromalacia patellae, right knee (~03/2019) GERD (gastroesophageal reflux disease) Hypertension Surgical History Appendectomy Cholecystectomy Injury of finger Vasectomy Social History Smoking/Tobacco Use Status: Current every day Tobacco Type: smokeless tobacco Smoking risk assessment performed?: Yes Alcohol Intake: current Alcohol Intake frequency: a few times a month Alcohol type: beer Drug use: Never Substance use type: marijuana Current gender identity: male Do you feel safe at home: Yes Do you feel safe in your relationship?: Yes
[2024-04-07] MEDS: Acetaminophen 500 MG TAB 1000 MG PO (13:36)
[2024-04-07] MEDS: Ketorolac 30 MG/ML VIAL IM (13:38)
[2024-04-07] MEDS: Lidocaine 5% Patch 1 PATCH TP (13:39)
[2024-04-07] MEDS: Diclofenac 1% Gel 100 GM TUBE TP (13:39)
--- NOTE | 2024-04-07 14:05 | DI.RAD_ITS ---
Exam(s) XR SHOULDER LT COMPLETE 2+V EXAM: XR SHOULDER LT COMPLETE 2+V CLINICAL HISTORY: Left shoulder pain throughout, mild atypical AC luiz. TECHNIQUE: 2D digital imaging was performed. COMPARISON: No exams were available for comparison FINDINGS: Five views No evidence of fracture or dislocation. On the axial image there is a 9 x 2 mm calcification noted i n the soft tissues just anterior to the greater tuberosity. Consistent with element of calcific tend initis. There is mild widening of the AC joint. Glenohumeral joint appears unremarkable. Bone density is normal. No significant osseous lesions. IMPRESSION: Soft tissue calcification seen on the axial image indicative probable calcific rotator cuff tendiniti s. There is mild widening of the AC joint also evident. DATA REPOSITORY: RADIATION DOSE DELIVERED:
[2024-04-07 14:52] VITALS: BP 197/127
[2024-04-07 14:58] VITALS: BP 197/127; PULSE 57; RESP 18; O2SAT 96
== END 2024-04-07 14:57 | disposition home or self-care (01) ==
PROVIDERS: Emergency Provider Student in an Organized Health Care Education/Training Program; PCP Family Medicine
DX: M75.32 Calcific tendinitis of left shoulder; I10 Essential (primary) hypertension; Z79.899 Other long term (current) drug therapy
CPT/HCPCS: 96372; 99284; 73030; 99283; J1885

== ENCOUNTER 2024-08-25 01:26 | Outpatient (CLI) | payer MEDICAID, SELFPAY ==
[2024-08-25 09:00] LABS: Anion Gap 7.2 mmol/L (3-11); BUN 25 mg/dL (7-18); CO2 29.8 mmol/L (21.0-32.0); CREATININE 1.2 mg/dL (0.70-1.30); Calcium 9.4 mg/dL (8.5-10.1); Calculated LDL 108 mg/dL (<100); Chloride 104 mmol/L (98-107); Cholesterol 182 mg/dL (<200); Estimated GFR 69.66 (mL/min/1.73m2); Glucose 113 mg/dL (74-106); HDL Cholesterol 43 mg/dL (>or=40); Potassium 3.5 mmol/L (3.5-5.1); Sodium 141 mmol/L (136-145); Triglyceride 158 mg/dL (<150)
[2024-08-25 09:46] LABS: Hemoglobin A1C 5.5 % (<5.7)
[2024-08-25 18:40] LABS: PSA, Screening 0.4 ng/mL (<=3.5)
[2024-08-28 11:12] LABS: Hepatitis C Ab w Rflx HCV PCR Negative (Negative)
[2024-08-28 11:20] LABS: HBs Antibody, Quant 24.7 mIU/mL (See Note); Hep B Surface Ab Positive (See Note); Hepatitis B Core Antibody Negative (Negative); Hepatitis B Surface Antigen Negative (Negative)
[2024-08-28 11:30] LABS: HIV-1/2 Ag & Ab Screen Negative (Negative)
== END 2024-08-25 01:27 | disposition home or self-care (01) ==
PROVIDERS: PCP Family Medicine; Visit Provider Family Medicine
DX: E78.5 Hyperlipidemia, unspecified (principal); Z12.5 Encounter for screening for malignant neoplasm of prostate; Z11.59 Encounter for screening for other viral diseases; Z00.00 Encounter for general adult medical examination without abnormal findings; R73.9 Hyperglycemia, unspecified; E87.1 Hypo-osmolality and hyponatremia
CPT/HCPCS: 36415; 80048; 80061; 84153; 86704; 86706; 86803; 87340; 87389; 83036